=== PATIENT | female | born 1960 | race African-American/Black ===

== ENCOUNTER → 2016-08-01 | Outpatient (CLI) | payer OTHER ==
--- NOTE | 2016-08-01 10:07 | MM ---
Reason for exam: follow-up at short interval from prior study. Last mammogram was performed 6 months ago. History: Patient is postmenopausal. Physical Findings: Nurse Summary: 0.5cm nodule in the left breast at 3 o'clock (nurse kp). MG Diagnostic Mammo LT w CAD CC and MLO view(s) were taken of the left breast. Prior study comparison: January 22, 2016, left breast MG work up mamm w CAD LT. December 16, 2015, bilateral MG screening mammo w CAD. The breast tissue is heterogeneously dense. This may lower the sensitivity of mammography. There is no discrete abnormality. No significant new findings when compared with previous films. These results were verbally communicated with the patient and result sheet given to the patient on 08/01/16. ASSESSMENT: Incomplete: need additional imaging evaluation, BI-RAD 0 RECOMMENDATION: Ultrasound of the left breast. (palpable)
--- NOTE | 2016-08-01 10:08 | USB ---
Reason for exam: additional evaluation requested from abnormal screening. History: Patient is postmenopausal. US Breast Limited LT Left breast ultrasound demonstrates no cystic or solid lesion seen. These results were verbally communicated with the patient and result sheet given to the patient on 08/01/16. ASSESSMENT: Negative, BI-RAD 1 RECOMMENDATION: Return to routine screening mammogram schedule for both breasts. Manage patient on a clinical basis.
== END | disposition home or self-care (01) ==
LOC: RADMAMWWP 08:38
PROVIDERS: ATTEND Family Medicine
DX: R92.8 Other abnormal and inconclusive findings on diagnostic imaging of breast (principal)
CPT/HCPCS: 76642; G0206

== ENCOUNTER → 2016-10-10 | Outpatient (CLI) | payer OTHER ==
--- NOTE | 2016-10-10 12:11 | US ---
EXAMINATION TYPE: US thyroid st tissue head/neck DATE OF EXAM: 10/10/2016 COMPARISON: NONE CLINICAL HISTORY: E03.9 ACQUIRED HYPOTHYROIDISM. GLAND SIZE: Right Lobe: 5.1 x 0.9 x 1.1 cm Overall Parenchyma: homogenous Left Lobe: 4.2 x 1.0 x 1.5 cm Overall Parenchyma: homogeneous Isthmus Thickness: 0.1 cm NODULES RIGHT: # of nodules measured on right: 0 LEFT: # of nodules measured on left: 1 1. 0.3 X 0.2 x 0.1 cm echogenic solid nodule at the mid pole with well-defined margins; . This nod ule is wider than tall and shows no intranodular vascularity. Prior size: no prior ISTHMUS: # of nodules measured in the isthmus: 0 . Bilateral neck scanned, no evidence of lymphadenopathy. Thyroid gland is normal in size and homogeneous in appearance with single small nodule marked lower p ole level left thyroid lobe. IMPRESSION: Thyroid gland is normal in size and homogeneous in echotexture, no worrisome greater than 1 cm solid or cystic nodules are evident bilaterally.
== END | disposition home or self-care (01) ==
LOC: RADUSWWP 11:22
PROVIDERS: ATTEND Family Medicine
DX: E04.1 Nontoxic single thyroid nodule (principal)
CPT/HCPCS: 76536

== ENCOUNTER → 2017-08-14 | Outpatient (CLI) | payer OTHER ==
--- NOTE | 2017-08-15 10:42 | MM ---
Reason for exam: screening (asymptomatic). Last mammogram was performed 1 year ago. History: Patient is postmenopausal. Physical Findings: A clinical breast exam by your physician is recommended on an annual basis and results should be correlated with mammographic findings. MG 3D Screening Mammo W/Cad Bilateral CC and MLO view(s) were taken. Prior study comparison: August 01, 2016, left breast MG diagnostic mammo LT w CAD. January 22, 2016, left breast MG work up mamm w CAD LT. The breast tissue is extremely dense which could obscure a lesion on mammography. Benign calcifications. ASSESSMENT: Benign, BI-RAD 2 RECOMMENDATION: Routine screening mammogram of both breasts in 1 year.
== END | disposition home or self-care (01) ==
LOC: RADMAMWWP 13:50
PROVIDERS: ATTEND Family Medicine
DX: Z12.31 Encounter for screening mammogram for malignant neoplasm of breast (principal)
CPT/HCPCS: 77063; 77067

== ENCOUNTER → 2019-01-30 | Outpatient (CLI) | payer OTHER ==
--- NOTE | 2019-01-30 16:42 | BD ---
EXAMINATION TYPE: Axial Bone Density DATE OF EXAM: 01/30/2019 COMPARISON: NONE CLINICAL HISTORY: Osteoporosis screening Height: 64 Weight: 86 FRAX RISK QUESTIONS: Alcohol (3 or more units per day): no Family History (Parent hip fracture): no Glucocorticoids (More than 3mos): no (Ex: prednisone, prednisolone, methylprednisolone, dexamethasone, and hydrocortisone). History of Fracture in Adulthood: no Secondary Osteoporosis: 1. Type 1 Diabetes: no 2. Hyperthyroidism: no 3. Menopause before 45: yes 4. Malnutrition: yes 5. Chronic liver disease: no Rheumatoid Arthritis: no Current Tobacco Use: no RISK FACTORS HISTORY OF: Diet low in dairy products/other sources of calcium: yes Postmenopausal woman: age 32 Poor Health: yes MEDICATIONS: oxcarbazepine, folic acid, divalproex, trazodone Thyroid Medications: levothyroxine Additional History: EXAM MEASUREMENTS: Bone mineral densitometry was performed using the [employer] System. Bone mineral density as measured about the Lumbar spine is: ----- L1-L4(G/cm2): 0.830 T Score Values are as follows: ----- L2: -3.0 ----- L3: -2.8 ----- L4: -3.1 ----- L1-L4: -2.9 Bone mineral density : baseline Bone mineral density about the R hip (g/cm2): 0.741 Bone mineral density about the L hip (g/cm2): 0.637 T Score values are as follows: -----R Neck: -2.1 -----L Neck: -2.9 -----R Total: -2.1 -----L Total: -3.0 Bone mineral density : baseline IMPRESSION: Osteoporosis NOTE: T-SCORE=SD OF THE YOUNG ADULT MEAN.
--- NOTE | 2019-02-01 10:42 | MM ---
Reason for exam: screening (asymptomatic). Last mammogram was performed 1 year and 6 months ago. History: Patient is postmenopausal. Physical Findings: A clinical breast exam by your physician is recommended on an annual basis and results should be correlated with mammographic findings. MG 3D Screening Mammo W/Cad Bilateral CC and MLO view(s) were taken. Prior study comparison: August 14, 2017, bilateral MG 3d screening mammo w/cad. August 01, 2016, left breast MG diagnostic mammo LT w CAD. The breast tissue is extremely dense which could obscure a lesion on mammography. Benign appearing bilateral vascular calcifications. No suspicious abnormality. No significant changes when compared with prior studies. ASSESSMENT: Benign, BI-RAD 2 RECOMMENDATION: Routine screening mammogram of both breasts in 1 year.
== END | disposition home or self-care (01) ==
LOC: RADMAMWWP 08:02
PROVIDERS: ATTEND Family Medicine
DX: Z12.31 Encounter for screening mammogram for malignant neoplasm of breast (principal); Z13.820 Encounter for screening for osteoporosis; M81.0 Age-related osteoporosis without current pathological fracture; M79.605 Pain in left leg; M79.604 Pain in right leg
CPT/HCPCS: 77063; 77067; 77080; 93922

== ENCOUNTER → 2020-06-11 | Outpatient (CLI) | payer OTHER ==
--- NOTE | 2020-06-12 13:55 | MM ---
Reason for exam: screening (asymptomatic). Last mammogram was performed 1 year and 4 months ago. History: Patient is postmenopausal. Physical Findings: A clinical breast exam by your physician is recommended on an annual basis and results should be correlated with mammographic findings. MG 3D Screening Mammo W/Cad Bilateral CC and MLO view(s) were taken. Prior study comparison: January 30, 2019, bilateral MG 3d screening mammo w/cad. August 14, 2017, bilateral MG 3d screening mammo w/cad. The breast tissue is extremely dense which could obscure a lesion on mammography. New calcifications upper outer right breast. This finding is changed when compared with previous exams. ASSESSMENT: Incomplete: need additional imaging evaluation, BI-RAD 0 RECOMMENDATION: Special view mammogram of the right breast. [facility] will attempt to contact patient to return for supplemental views.
== END | disposition home or self-care (01) ==
LOC: RADMAMWWP 14:39
PROVIDERS: ATTEND Family Medicine
DX: Z12.31 Encounter for screening mammogram for malignant neoplasm of breast (principal)
CPT/HCPCS: 77063; 77067

== ENCOUNTER → 2020-07-01 | Outpatient (CLI) | payer OTHER ==
--- NOTE | 2020-07-02 09:54 | MM ---
Reason for exam: additional evaluation requested from abnormal screening. Last mammogram was performed 1 month ago. History: Patient is postmenopausal. Physical Findings: Nurse did not find any significant physical abnormalities on exam. MG 3D Work Up W/Cad RT CC with magnification, LM with magnification, and LM view(s) were taken of the right breast. Prior study comparison: June 11, 2020, bilateral MG 3d screening mammo w/cad. January 30, 2019, bilateral MG 3d screening mammo w/cad. The breast tissue is heterogeneously dense. This may lower the sensitivity of mammography. Vague grouped 11 o'clock microcalcifications are redemonstrated. Not well seen on priors. Patient not amenable to stereo biopsy to breast thickness. These results were verbally communicated with the patient and result sheet given to the patient on 07/01/20. ASSESSMENT: Suspicious, BI-RAD 4 RECOMMENDATION: Localization and excision of the right breast. (Consider CC from above approach) Called Dr. Navarro's office with mammographic findings and has scheduled an appointment for the patient for 07/30/20 at 11:[address] Moss. Biopsy scheduled for 08/05/20. PRELIMINARY REPORT CALLED AND FAXED TO DR. MOSS ON 07/02/20.
== END | disposition home or self-care (01) ==
LOC: RADMAMWWP 13:27
PROVIDERS: ATTEND Family Medicine
DX: R92.8 Other abnormal and inconclusive findings on diagnostic imaging of breast (principal)
CPT/HCPCS: 77065; G0279; 77061

== ENCOUNTER → 2020-07-30 | Outpatient (CLI) | payer OTHER ==
[2020-07-30 11:27] VITALS: BP 123/75; PULSE 66; RESP 12; TEMP 97.8
--- NOTE | 2020-07-30 11:33 | P.GSHP ---
History of Present Illness H&P Date: 07/30/20 Chief Complaint: Mammographic abnormality right breast Alexia is a 60 year old female who is seen in consultation fro Dr. Radha Perea. She had a bilateral mammogram performed on 2420. The breast tissue was extremely dense nuclear calcifications were seen in the right breast in the upper outer quadrant. A diagnostic right breast mammogram was then performed and [id number]. Vague area of grouped microcalcifications were noted at the 11 o'clock position. The feeling was that the breast was too thin for her to undergo a stereo biopsy and needle localization and excision in the operating room was recommended. She gets yearly mammograms on a regular basis. Her last mammogram prior to this one was approximately 1 year 4 months ago. She did not note any lumps masses or nodules of concern in either breast. She is complaining of any nipple discharge or skin changes. She does not have any pain in her breast. She is not complaining of any trauma or infection in the breast. Caffeine: none Nicotine: One pack every 2 days, since chocolate: occasional hormones: none Family History: mother: colon cancer Hormonal History: menarche: 13 G5,P2, M1 AB1 tubal:1, breast fed: no, age at first : 18 menopause: 26 BCP: no hormones: none Surgical History: 1. appy Medical History: 1. seizure 2. bipolar 3. hypothyroid 4. hypoglycemia 5. asthma Social History: nicotine: since alcohol: 1 drink vodka/2 days drugs: none - Constitutional Constitutional: Denies chills, Denies fever - EENT Comment: glasses Eyes: denies blurred vision, denies pain Ears: deny: decreased hearing, tinnitus Ears, nose, mouth and throat: Denies headache, Denies sore throat - Breasts Breasts: bilateral: as per HPI - Cardiovascular Cardiovascular: Denies chest pain, Denies shortness of breath - Respiratory Comment: nicotine dependance asthma - Gastrointestinal Gastrointestinal: Reports constipation - Genitourinary (Female) Genitourinary: Denies dysuria, Denies hematuria - Menstruation Menstruation: Reports postmenopausal - Musculoskeletal Comment: osteoporosis - Integumentary Integumentary: Denies pruritus, Denies rash - Neurological Comment: seizure - Psychiatric Comment: bipolar - Endocrine Comment: hypothyroid - Hematologic/Lymphatic Comment: none - Allergic/Immunologic Allergic/Immunologic: Reports seasonal allergies Surgical - Exam BMI 14.9 - General cachectic - Eyes normal ocular movement - ENT normal pinna, normal nares - Neck no masses, trachea midline - Respiratory normal expansion, normal respiratory effort, clear to auscultation - Cardiovascular Rhythm: regular Heart Sounds: normal: S1, S2 - Abdomen Abdomen: soft - Integumentary normal turgor - Neurologic no disoriented, no combative - Musculoskeletal normal gait - Psychiatric oriented to time, oriented to person, oriented to place, speech is normal, memory intact breast exam: BRA: Xsmall inspection; the lateral grade 3 ptosis Palpation: Right breast: Multi-positional exam fibrocystic changes, no dominant masses or nodules of concern Right axilla: No adenopathy of concern Left breast: Multi-positional exam fibrocystic changes, no dominant masses or nodules of concern Left axilla: No adenopathy of concern Results Mammogram results reviewed with Dr. Aguirre; patient is not felt to be a candidate for an attempted stereo biopsy and lesion of concern is felt to warrant needle local excision Assessment and Plan Assessment: Impression: 1. seizure 2. bipolar 3. hypothyroid 4. hypoglycemia 5. asthma 6. Cachexia 7. Mammographic abnormality right breast 8. Nicotine dependence Plan: 1. Needle localization excision of lesion of concern in the right breast 2. Medical clearance from Dr. Perea 3. Patient encouraged to stop smoking prior to the procedure 4. Ensure prior to surgery 5. Vitamin C supplementation prior to the procedure Risks and benefits of the procedure were discussed with the patient. She understands and wishes to proceed. CC: Dr. Escudero
== END ==
LOC: WWCWWP 11:02
PROVIDERS: ATTEND Surgery
DX: R92.8 Other abnormal and inconclusive findings on diagnostic imaging of breast (principal); F31.9 Bipolar disorder, unspecified; E03.9 Hypothyroidism, unspecified; J45.909 Unspecified asthma, uncomplicated; E16.2 Hypoglycemia, unspecified; F17.200 Nicotine dependence, unspecified, uncomplicated; R64 Cachexia; R56.9 Unspecified convulsions

== ENCOUNTER → 2020-09-24 | Outpatient (CLI) | payer OTHER ==
[2020-09-24 10:50] VITALS: BP 125/77; PULSE 76; RESP 18; TEMP 98.5
--- NOTE | 2020-09-24 11:28 | P.PN ---
Subjective Progress Note Date: 09/24/20 Principal diagnosis: abnormal right breast mammogram Alexia is a 60 year old female who is seen in consultation fro Dr. Radha Perea. She had a bilateral mammogram performed on 2420. The breast tissue was extremely dense and calcifications were seen in the right breast in the upper outer quadrant. A diagnostic right breast mammogram was then performed on . Vague area of grouped microcalcifications were noted at the 11 o'clock position. The feeling was that the breast was too thin for her to undergo a stereo biopsy and needle localization and excision in the operating room was recommended. She gets yearly mammograms on a regular basis. Her last mammogram prior to this one was approximately 1 year 4 months ago. She did not note any lumps masses or nodules of concern in either breast. She is complaining of any nipple discharge or skin changes. She does not have any pain in her breast. She is not complaining of any trauma or infection in the breast. Caffeine: none Nicotine: One pack every 2 days, since chocolate: occasional hormones: none Family History: mother: colon cancer Hormonal History: menarche: 13 G5,P2, M1 AB1 tubal:1, breast fed: no, age at first : 18 menopause: 26 BCP: no hormones: none Surgical History: 1. appy Medical History: 1. seizure 2. bipolar 3. hypothyroid 4. hypoglycemia 5. asthma Social History: nicotine: since alcohol: 1 drink vodka/2 days drugs: none - Constitutional Constitutional: Denies chills, Denies fever - EENT Comment: glasses Eyes: denies blurred vision, denies pain Ears: deny: decreased hearing, tinnitus Ears, nose, mouth and throat: Denies headache, Denies sore throat - Breasts Breasts: bilateral: as per HPI - Cardiovascular Cardiovascular: Denies chest pain, Denies shortness of breath - Respiratory Comment: nicotine dependance asthma - Gastrointestinal Gastrointestinal: Reports constipation - Genitourinary (Female) Genitourinary: Denies dysuria, Denies hematuria - Menstruation Menstruation: Reports postmenopausal - Musculoskeletal Comment: osteoporosis - Integumentary Integumentary: Denies pruritus, Denies rash - Neurological Comment: seizure - Psychiatric Comment: bipolar - Endocrine Comment: hypothyroid - Hematologic/Lymphatic Comment: none - Allergic/Immunologic Allergic/Immunologic: Reports seasonal allergies Objective - Vital Signs Vital signs: Vital Signs Temp 98.5 F 09/24/20 10:46 Pulse 76 09/24/20 10:46 Resp 18 09/24/20 10:46 BP 125/77 09/24/20 10:46 Pulse Ox 97 09/24/20 10:46 Intake & Output 09/23/20 09/24/20 09/24/20 18:59 06:59 18:59 Weight 37.195 kg - Exam BMI 14.1 - Constitutional General appearance: Present: cooperative - EENT Eyes: Present: EOMI ENT: Present: hearing grossly normal - Neck Neck: Present: normal ROM - Respiratory Respiratory: bilateral: CTA - Cardiovascular Heart sounds: normal: S1, S2 - Gastrointestinal General gastrointestinal: Present: soft - Integumentary Integumentary: Present: normal turgor - Musculoskeletal Musculoskeletal Comment(s): uses a cane - Psychiatric Psychiatric: Present: A&O x's 3, appropriate affect, intact judgment & insight - Additional findings Additional findings: Breast exam: BRA: A inspection: bilateral grade 3 ptosis Palpation: Right breast: Multi-positional exam fibrocystic changes no dominant masses or nodules of concern Right axilla: No adenopathy of concern Left breast: Multiple positional exam fibrocystic changes Left axilla: No adenopathy of concern Assessment and Plan Assessment: Impression: 1. seizure 2. bipolar 3. hypothyroid 4. hypoglycemia 5. asthma 6. Mammographic abnormality right breast Plan: 1. Right breast needle localization excisional biopsy, possible onco- plastic tissue transfer, possible mastopexy 2. medical clearance Risk and benefits of the procedure discussed with the patient. She would prefer this be done via mastopexy incision if possible. She understands she will be asymmetric. Risks include but are not limited to bleeding, infection, reaction to the anesthetic. There is a possibility that the needle was slipped over the neck of the correct area. She understands this and wishes to proceed.
== END ==
LOC: WWCWWP 09:22
PROVIDERS: ATTEND Surgery
DX: R92.8 Other abnormal and inconclusive findings on diagnostic imaging of breast (principal); R56.9 Unspecified convulsions; F31.9 Bipolar disorder, unspecified; E03.9 Hypothyroidism, unspecified; J45.909 Unspecified asthma, uncomplicated; E16.2 Hypoglycemia, unspecified; Z88.5 Allergy status to narcotic agent; Z88.0 Allergy status to penicillin

== ENCOUNTER 2020-09-29 07:27 | Day surgery (SDC) | payer OTHER ==
[2020-09-28 08:49] VITALS: BMI 14.1
[~2020-09-29 07:27] MED LIST: HEPARIN SODIUM,PORCINE/PF 5,000 UNIT/0.5 ML SYRINGE SQ PRN; Pre Op ABX Message 1 EACH MISC MISCELLANE ONE
[2020-09-29] MEDS ORDERED: HYDROmorphone 0.5 MG/0.5 ML SYRINGE IVP PRN (07:42)
[2020-09-29] MEDS ORDERED: MIDAZOLAM 2 MG/2 ML VIAL IV PRN (07:42)
[2020-09-29] MEDS ORDERED: LACTATED RINGERS 1,000 ML IV SCH (07:42)
[2020-09-29] MEDS ORDERED: DEXAMETHASONE SOD PHOSPHATE 4 MG/ML 1 ML VIAL IV ONE (07:42)
[2020-09-29] MEDS ORDERED: LIDOCAINE 1% (10MG/ML) FOR IV START INTRADERMA PRN (07:42)
[2020-09-29] MEDS ORDERED: ONDANSETRON 4 MG/2 ML VIAL IVP ONE (07:42)
[2020-09-29] MEDS ORDERED: LIDOCAINE 1% INJ 10MG/ML (20 ML MDV) SQ ONE ×2 (08:55→10:18)
--- NOTE | 2020-09-29 09:25 | MM ---
MAMMOGRAPHIC GUIDED NEEDLE LOCALIZATION Right BREAST: The procedure and risks were explained to the patient and written informed consent obtained. Using local anesthetic, sterile technique and mammographic guidance, a 5 cm Ghiatas localization need le was percutaneously placed in the area of microcalcifications. Orthogonal mammographic views confi rmed satisfactory needle placement. The hookwire was deployed. . The patient tolerated the procedure well. There were no complications. IMPRESSION: Uneventful needle localization of Right breast without complication.
[2020-09-29] MEDS ORDERED: PROPOFOL 10 MG/ML 20 ML VIAL IV ONE (09:51)
[2020-09-29] MEDS ORDERED: fentaNYL (PF) 50 MCG/ML 2 ML AMP ONE (09:51)
[2020-09-29] MEDS ORDERED: MIDAZOLAM 2 MG/2 ML VIAL ONE (09:51)
[2020-09-29] MEDS ORDERED: LIDOCAINE 1% INJ 10MG/ML (20 ML MDV) ONE (09:51)
--- NOTE | 2020-09-29 10:42 | P.OP ---
Date of Procedure: 09/29/20 Preoperative Diagnosis: Microcalcifications of concern right breast Postoperative Diagnosis: Same Procedure(s) Performed: needle Localization excisional lumpectomy microcalcifications of concern right breast Anesthesia: SKYA Surgeon: Yasemin Moss Estimated Blood Loss (ml): 3 IV fluids (ml): 300 Pathology: other (Breast tissue) Condition: stable Disposition: same day Indications for Procedure: Microcalcifications of concern right breast, failed stereotactic core biopsy Operative Findings: Dense breast tissue Description of Procedure: The patient was first seen in the radiology department where needle localization of the area of concern was performed. Following this she was brought to the operative suite and following induction of anesthesia the right breast was prepped and draped in a sterile fashion. An incision was made and carried down to the shaft of the needle. Surrounding tissue was excised. After assured that hemostasis was attained the cavity was well irrigated. Titanium clips were placed. The deep tissues were closed using 3-0 Vicryl suture. The subcutaneous tissues closed using 3-0 Vicryl suture. The skin was closed using 4-0 Monocryl and glue. The specimen revealed the area of concern had been removed. The patient tolerated the procedure in stable condition. All instrument and sponge counts were correct at the end of the case.
--- NOTE | 2020-09-29 10:44 | P.DS ---
Providers Attending physician: Yasemin Moss Primary care physician: Radha Navarro Plan - Discharge Summary Discharge Rx Participant: No New Discharge Prescriptions: No Action traZODone HCL 50 mg PO HS Famotidine [Pepcid] 20 mg PO HS OXcarbazepine [Trileptal] 150 mg PO BID Divalproex Sodium [Depakote] 500 mg PO BID Calcium Carbonate [Calcium] 600 mg PO BID Levothyroxine-Dose Unk 1 tab PO DAILY Alendronate Sodium 70 mg PO SA Discharge Medication List Calcium Carbonate [Calcium] 600 mg PO BID 09/24/20 [History] Divalproex Sodium [Depakote] 500 mg PO BID 09/24/20 [History] Famotidine [Pepcid] 20 mg PO HS 09/24/20 [History] OXcarbazepine [Trileptal] 150 mg PO BID 09/24/20 [History] traZODone HCL 50 mg PO HS 09/24/20 [History] Alendronate Sodium 70 mg PO SA 09/28/20 [History] Levothyroxine-Dose Unk 1 tab PO DAILY 09/28/20 [History] Follow up Appointment(s)/Referral(s): Yasemin Moss MD [STAFF PHYSICIAN] - 1 Week Activity/Diet/Wound Care/Special Instructions: do not drive today may shower after 48 hours Discharge Disposition: HOME SELF-CARE
--- NOTE | 2020-09-29 10:45 | MM ---
FINDINGS: Right breast specimen radiograph demonstrates the tip of the localization needle. IMPRESSION: Intact appearing localization needle within the specimen right breast specimen radiograph.
[2020-09-29 10:59] VITALS: TEMP 97.2
[2020-09-29 11:48] VITALS: RESP 18
[2020-09-29 12:13] VITALS: BP 123/74; PULSE 66
== END 2020-09-29 12:23 | disposition home or self-care (01) ==
LOC: OR 07:27
PROVIDERS: ATTEND Surgery
DX: N60.11 Diffuse cystic mastopathy of right breast (principal); J45.909 Unspecified asthma, uncomplicated; F17.210 Nicotine dependence, cigarettes, uncomplicated; K21.9 Gastro-esophageal reflux disease without esophagitis; Z79.899 Other long term (current) drug therapy; Z88.0 Allergy status to penicillin; Z80.0 Family history of malignant neoplasm of digestive organs; E03.9 Hypothyroidism, unspecified; E16.2 Hypoglycemia, unspecified; F31.9 Bipolar disorder, unspecified; M81.0 Age-related osteoporosis without current pathological fracture
CPT/HCPCS: 88307; 76098; 19281; 19301; J2250; J1100; J2405; J2001; J3010; J2704; J1644

== ENCOUNTER → 2020-10-16 | Outpatient (CLI) | payer OTHER ==
--- NOTE | 2020-10-16 12:24 | P.PN ---
Progress Note - Text Progress Note Date: 10/16/20 Alexia is a 60 year old female status post right breast needle localization excisional biopsy. This was done and [id number]. Pathology is benign. The patient has no complaints related to the procedure. Physical Examination: Incision right breast clean and dry no evidence of any infection Lungs: Clear Heart: Regular rate and rhythm Impression: 1. Patient status post needle localization excisional biopsy right breast benign Plan: 1. Repeat right breast mammogram in 6 months with physician exam at that time Cc: Dr. Lesly Navarro
[2020-10-16 13:09] VITALS: BP 104/69; PULSE 54; RESP 18; TEMP 98.1
== END ==
LOC: WWCWWP 10-09 15:58
PROVIDERS: ATTEND Surgery
DX: N60.91 Unspecified benign mammary dysplasia of right breast (principal); Z88.5 Allergy status to narcotic agent; Z88.0 Allergy status to penicillin

== ENCOUNTER → 2021-04-16 | Outpatient (CLI) | payer OTHER ==
--- NOTE | 2021-04-19 09:48 | MM ---
Reason for exam: follow-up at short interval from prior study. Last mammogram was performed 9 months ago. History: Patient is postmenopausal. Benign MG pre op needle loc RT of the right breast, September 29, 2020. Physical Findings: Nurse did not find any significant physical abnormalities on exam. MG 3D Diag Mammo W/Cad RT CC and MLO view(s) were taken of the right breast. Prior study comparison: July 01, 2020, right breast MG 3d work up w/cad RT. June 11, 2020, bilateral MG 3d screening mammo w/cad. The breast tissue is extremely dense which could obscure a lesion on mammography. Post surgical changes right upper outer quadrant. These results were verbally communicated with the patient and result sheet given to the patient on 04/16/21. ASSESSMENT: Benign, BI-RAD 2 RECOMMENDATION: Return to routine screening mammogram schedule for both breasts. Back on schedule.
== END | disposition home or self-care (01) ==
LOC: RADMAMWWP 14:54
PROVIDERS: ATTEND Surgery
DX: R92.8 Other abnormal and inconclusive findings on diagnostic imaging of breast (principal)
CPT/HCPCS: 77065; G0279; 77061

== ENCOUNTER → 2022-04-28 | Outpatient (CLI) | payer OTHER ==
[2022-04-28 18:46] LABS: INR 0.92 (0.90-1.11); Prothrombin Time 10.4 sec (9.9-11.9)
[2022-04-28 18:50] LABS: Basophils # (A) 0.02 X 10*3/uL (0.00-0.10); Basophils % (A) 0.2 %; Eosinophils # (A) 0.05 X 10*3/uL (0.04-0.35); Eosinophils % (A) 0.6 %; HCT 38.2 % (37.2-46.3); HGB 12.1 g/dL (12.0-15.0); Immature Grans, Automated 0.3 %; Lymphocytes # (A) 2.92 X 10*3/uL (0.90-5.00); Lymphocytes % (A) 32.7 %; MCHC 31.7 g/dL (32.0-37.0); MCV 104.1 fL (80.0-97.0); Mean Platelet Volume 9.4 fL (9.5-12.2); Monocytes # (A) 0.61 X 10*3/uL (0.20-1.00); Monocytes % (A) 6.8 %; NRBC Per 100 WBC 0.3 /100 WBCS (0.0-0.0); Neutrophils # (A) 5.31 X 10*3/uL (1.80-7.70); Neutrophils % (A) 59.4 %; Platelet Count 666 X 10*3/uL (140-440); RBC 3.67 X 10*6/uL (4.10-5.20); RDW 16.2 % (11.5-14.5); WBC 8.94 X 10*3/uL (4.50-10.00)
[2022-04-28 19:01] LABS: African American GFR (CKD) 109.3 (60.0-200.0); Albumin 5.1 g/dL (3.8-4.9); Albumin/Globulin Ratio 1.52 (1.60-3.17); Anion Gap 15.7 mmol/L (10.00-18.00); BUN/Creat Ratio 10.38 Ratio (12.00-20.00); Blood Urea Nitrogen 7.1 mg/dL (9.0-27.0); Calcium 10.5 mg/dL (8.7-10.3); Carbon Dioxide 22.3 mmol/L (20.0-27.5); Globulin 3.3 g/dL (1.6-3.3); Non-African American GFR(CKD) 94.3 (60.0-200.0); Potassium 4.4 mmol/L (3.5-5.5); Total Bilirubin 0.5 mg/dL (0.30-1.20); Total Protein 8.4 g/dL (6.2-8.2)
== END | disposition home or self-care (01) ==
LOC: LABWHC1 11:01
PROVIDERS: ATTEND Family Medicine
DX: Z01.812 Encounter for preprocedural laboratory examination (principal)
CPT/HCPCS: 36415; 80053; 85025; 85610

== ENCOUNTER 2022-05-02 06:22 | Observation (INO) | payer OTHER ==
[2022-04-29 12:48] VITALS: BMI 14.4
[~2022-05-02 06:22] MED LIST changes: +ACETAMINOPHEN TAB 500 MG TAB PO PRN; -HEPARIN SODIUM,PORCINE/PF 5,000 UNIT/0.5 ML SYRINGE SQ PRN; +MELOXICAM 7.5 MG TAB PO PRN; +ONDANSETRON 4 MG/2 ML VIAL IVP PRN; -Pre Op ABX Message 1 EACH MISC MISCELLANE ONE; +TRANEXAMIC ACID IN NACL,ISO-OS 1,000 MG in SALINE 1 100ML.BAG IVPB PRN
[2022-05-02] MEDS ORDERED: LIDOCAINE 1% (10MG/ML) FOR IV START INTRADERMA PRN (06:31)
[2022-05-02] MEDS ORDERED: LACTATED RINGERS 1,000 ML IV ONE ×2 (06:50→09:45)
[2022-05-02] MEDS ORDERED: fentaNYL (PF) 50 MCG/ML 2 ML AMP IV PRN (07:00)
[2022-05-02] MEDS ORDERED: DEXAMETHASONE SOD PHOSPHATE 4 MG/ML 1 ML VIAL IVP ONE (07:33)
[2022-05-02] MEDS ORDERED: MIDAZOLAM 2 MG/2 ML VIAL IVP ONE (07:35)
[2022-05-02] MEDS ORDERED: ROPIVACAINE 5 MG/ML 30 ML VIAL ONE (08:14)
[2022-05-02] MEDS ORDERED: ROCURONIUM 10 MG/ML (5 ML VIAL) IV ONE (08:14)
[2022-05-02] MEDS ORDERED: NEOSTIGMINE 1 MG/ML 10 ML VIAL ONE (08:14)
[2022-05-02] MEDS ORDERED: DEXAMETHASONE SOD PHOSPHATE 4 MG/ML 1 ML VIAL ONE (08:14)
[2022-05-02] MEDS ORDERED: PHENYLEPHRINE-0.9% NACL SYG 1,000 MCG/10 ML SYRINGE ONE (08:14)
[2022-05-02] MEDS ORDERED: GLYCOPYRROLATE 0.2 MG/ML 2 ML VIAL ONE (08:14)
[2022-05-02] MEDS ORDERED: PROPOFOL 10 MG/ML 20 ML VIAL IV ONE (08:14)
[2022-05-02] MEDS ORDERED: LIDOCAINE 1% (10MG/ML) FOR IV START ONE (08:14)
[2022-05-02] MEDS ORDERED: fentaNYL (PF) 50 MCG/ML 2 ML AMP ONE (08:14)
--- NOTE | 2022-05-02 09:06 | P.ANPRN ---
Procedure Note - Anesthesia - Nerve Block Performed Right Interscalene Single Time Out Performed: Yes Date of Procedure: 05/02/22 Procedure Start Time: :34 Procedure Stop Time: 07:40 Location of Patient: PreOp Indication: Acute Post-Operative Pain, Requested by Surgeon Sedation Type: Sedate with meaningful contact maintained Preparation: Sterile Prep, Sterile Dressing Position: Sitting Catheter: None Needle Types: Facet Needle Gauge: 21 Ultrasound used to visualize needle placement: Yes Ultrasound used to observe medication spread: Yes Injectate: 0.5% Ropivacaine (see comment for volume) (20 ml + decadron 4 mg) Blood Aspirated: No Pain Paresthesia on Injection Noted: No Resistance on Injection: Normal Image Stored and Saved: Yes Events: Uneventful and Well Tolerated
[2022-05-02] MEDS ORDERED: METOCLOPRAMIDE 5 MG/ML 2 ML VIAL IVP PRN (11:27)
[2022-05-02] MEDS ORDERED: SENNOSIDES-DOCUSATE SODIUM 1 EACH TAB PO PRN (11:27)
[2022-05-02] MEDS ORDERED: ONDANSETRON 4 MG/2 ML VIAL IVP PRN (11:27)
[2022-05-02] MEDS ORDERED: HYDROmorphone 0.5 MG/0.5 ML SYRINGE IVP PRN ×2 (11:27)
[2022-05-02] MEDS ORDERED: HYDROmorphone 1 MG/ML 1 ML SYRINGE IVP PRN (11:27)
--- NOTE | 2022-05-02 12:50 | XR ---
EXAMINATION TYPE: XR shoulder limited RT DATE OF EXAM: 05/02/2022 12:29 PM INDICATION: Patient age:Female; 62 years old; Reason for study: s/p right reverse TSA; COMPARISON: None TECHNIQUE: The right shoulder was examined in frontal projection. FINDINGS: Right reverse shoulder arthroplasty changes. There is acute osseous fragments along the superior and inferior aspect of the proximal humerus. Hardware appears intact. IMPRESSION: Reverse right shoulder arthroplasty changes with fracture fragments along the superior and inferior a spect of the proximal humerus. Hardware appears intact.
[2022-05-02] MEDS ORDERED: ALBUTEROL NEBULIZED 2.5 MG/3 ML INHALATION PRN (15:59)
[2022-05-02] MEDS: HYDROcodone/APAP 5-325MG 1 EACH TAB PO PRN ×3 (16:31→22:17)
--- NOTE | 2022-05-02 19:05 | P.OP ---
Date of Procedure: 05/02/22 Preoperative Diagnosis: Right Proximal humerus fracture and dislocation Postoperative Diagnosis: Right proximal humerus fracture and dislocation Procedure(s) Performed: right reverse total shoulder Implants: [employer] Reverse Total Shoulder 24mm +2 baseplate, inferior nonlocking screw, 2 additional locking screws 36mm glenosphere size 6 standard stem 33mm cup 33+3 for 36mm poly Anesthesia: SKYA, durga Surgeon: Rosy Sutton Electric Sign Wirer #1: Hemalatha Hsu Estimated Blood Loss (ml): 200 Pathology: none sent Condition: stable Disposition: PACU Indications for Procedure: Alexia had a ground level fall on 04/12/22. She sustained a proximal humerus fracture with a dislocated humeral head. We had a long discussion about her treatment options and decided to proceed with a reverse total shoulder arthroplasty. Description of Procedure: The patient, operative extremity, and procedure were confirmed in the preop holding area. After an informed consent was obtained, the patient received a regional block by the anesthesia team. She was then brought back to the OR where general anesthesia was induced and she was placed in the beachchair position. The extremity was then prepped and draped in normal sterile fashion. An oblique incision from just lateral to the coracoid to the deltoid incision was made. Dissection was carried down to the muscles and the delto pectoral interval was developed after identifying the brachiocephalic vein. This was drawn medially and the lateral branches were ligated. The interval was further developed until the clavipectoral fascia was identified. The subdeltoid and subcorocoid space was cleared with a hernandez elevator. The interval was quite tight given the time since the fracture. About 1cm of the pectoralis attachment was released. The clavipectoral fascia was opened and a kobell retractor placed beneath the conjoined tendon. The biceps tendon was identified in the bicipital groove. It was transected and tenodesed with a 2.0 vicryl suture. The groove was marked with a bovie and an osteotome was utilized to split the lesser from the greater tuberosities. They were opened liked a book and the impacted and dislocated humeral head was retrieved. Attention was then turned to the humeral shaft. The reamer was inserted and the cutting guide attached. A small area of the medial calcar was trimmed. Attention was then turned to the glenoid. The subscapularis tendon was released from the capsule and the anterior capsule was excised. The rotator interval was split all the way to the glenoid. The lesser and greater tuberosities were tagged. The biceps tendon was followed to the labrum. This was excised. The articular cartilage was scraped away. The central guide wire was then inserted. The measuring device revealed that a 36mm glenosphere would provide appropriate inferior coverage. Sequential reamers on the glenoid surface until bleeding bone was identified. The central peg was drilled and tapped. A 20mm central screw was assembled with the baseplate and inserted. There was good purchase. The inferior hole was drilled and filled with a nonlocking screw. The superior and posterior holes were filled with appropriately lengthed locking screws. The anterior hole was backed only by a thin shell of anterior glenoid rim and the decision was made to leave it unfilled given the excellent purchase with the pre vious screws. A 36mm glenosphere was impacted onto the baseplate. The attention was again turned to the humerus. Sequential broaches were used until a size 6 stem showed good purchase. A +3 cup was trialed with good fit with good range of motion and stability. The trials/broaches were removed and the humerus was copiously irrigated with normal saline. Two holes were drilled and a #5 fiberwire was inserted for the around the [place] stitch. The size 6 stem was then inserted. While it was impacted into place, there was a small chip of the medial calcar that was dislodged. examination revealed that there was no propagation but a prophylactic fibertape cerclage was placed. A 33 +3 to 36mm cup/poly was inserted. The joint was reduced with good tension and stability. Two fiberwire stitches were placed in the cup. These were taken through the greater and lesser trochanters. These were reduced and secured with the sutures from lesser to greater and from the humeral shaft around the top of the greater and lesser. The trochanters were well approximated. The delto pec interval was closed with 2.0 vicyrl. The remainder of the wound was closed in a layered fashion with 2.0 vicryl and 4.0 monocryl and skin glue. Provena dressing was placed. Patient was aroused by the anesthesia team and brought to pacu in stable condition.
[2022-05-02] MEDS: LACTATED RINGERS 1,000 ML IV SCH (19:40)
[2022-05-02] MEDS: DIVALPROEX 500 MG TABLET.DR PO SCH (19:46)
--- NOTE | 2022-05-02 22:31 | P.CONS ---
History of Present Illness - Reason for Consult Consult date: 05/02/22 Medical management - Chief Complaint Status post shoulder surgery. - History of Present Illness Patient is a 62-year-old female with a known history of hypothyroidism, seizure disorder, asthma and bipolar disorder and currently everyday smoker and occasional marijuana use was brought to the hospital for elective right reverse total shoulder due to right proximal humerus fracture status post fall. Patient states that she slipped her foot and fell down 4 steps and landed on her left shoulder. She had a fall on 04/12/2022. Patient was seen at [facility] on 04/13/2022 and was referred to orthopedic surgery evaluation. Patient was admitted to the hospital for surgical repair. Patient tolerated the procedure very well. Complains of shoulder pain. Wound VAC in place. Shoulder x-ray postsurgery showed reverse right shoulder arthroplasty changes with fracture fragments along the superior and inferior aspect of the proximal humerus. Hardware appears intact. Laboratory data not available at this time. Review of Systems Constitutional: Patient denies any fever or chills . no Generalized weakness. Abdomen: Patient denied any nausea or vomiting or abd. pain Cardiovascular: Patient denies any chest pain or short of breath no palpitations. Respiratory: patient denied any cough . no sputum production. No shortness of breath Neurologic: Patient denied any numbness or tingling headache. Musculoskeletal: Patient denies any complaints of joint swelling or deformity. Right shoulder pain at the surgical site. Skin: Negative Psychiatric: Negative Endocrine: No heat or cold intolerance. No recent weight gain. Genitourinary: No dysuria or hematuria. All other 14 point ROS negative except the above Past Medical History Past Medical History: Asthma, Seizure Disorder, Thyroid Disorder Additional Past Medical History / Comment(s): anemia, last seizure 2 1/2 yrs ago., osteoporosis., states she fell on stairs and injured right shoulder 04/12/22. History of Any Multi-Drug Resistant Organisms: None Reported Past Surgical History: Appendectomy, Orthopedic Surgery Additional Past Surgical History / Comment(s): left hip fx (2020) Past Anesthesia/Blood Transfusion Reactions: No Reported Reaction Past Psychological History: Bipolar Smoking Status: Current every day smoker Past Alcohol Use History: Occasional Additional Past Alcohol Use History / Comment(s): smokes 1/2 ppd., Started smoking age 18. Past Drug Use History: Marijuana Additional Drug Use History / Comment(s): occasional marijuana - Past Family History Father History Unknown: Yes Medications and Allergies Home Medications Medication Instructions Recorded Confirmed Type Calcium Carbonate [Calcium] 600 mg PO BID 09/24/20 05/02/22 History Divalproex Sodium [Depakote] 500 mg PO BID 09/24/20 05/02/22 History Alendronate Sodium 70 mg PO FR 09/28/20 05/02/22 History Albuterol Sulfate [Proventil Hfa] 1 puff INHALATION Q4-6H PRN 04/29/22 05/02/22 History Levothyroxine Sodium [Synthroid] 50 mcg PO DAILY 04/29/22 05/02/22 History Trileptal (Unknown Dose) 1 dose PO TID 04/29/22 05/02/22 History rOPINIRole HCL 0.25 mg PO HS 04/29/22 05/02/22 History Allergies Allergy/AdvReac Type Severity Reaction Status Date / Time codeine Allergy Itching Verified 05/02/22 06:42 Penicillins Allergy Itching Verified 05/02/22 06:42 Physical Exam Vitals: Vital Signs Temp Pulse Resp BP Pulse Ox 05/02/22 14:00 57 L 16 104/60 97 05/02/22 13:30 59 L 16 112/60 97 05/02/22 13:03 62 16 103/60 98 05/02/22 12:30 66 16 99/58 98 05/02/22 12:15 62 16 92/54 97 05/02/22 12:00 70 16 89/61 96 05/02/22 11:45 77 16 107/56 96 05/02/22 11:30 74 16 104/60 100 05/02/22 11:26 96.9 F L 73 16 112/64 100 05/02/22 07:40 96.8 F L 70 15 119/62 98 Intake and Output 05/02/22 05/02/22 05/02/22 06:59 14:59 22:59 Intake Total 300 1250 Output Total 200 Balance 300 1050 Intake: IV 300 1250 Output: Estimated Blood Loss 200 Other: Weight 38.102 kg PHYSICAL EXAMINATION: Patient is lying in the bed comfortably, no acute distress, awake alert and oriented.. HEENT: Normocephalic. Neck is supple. Pupils reactive. Nostrils clear. Oral cavity is moist. Neck reveals no JVD, carotid bruits, or thyromegaly. CHEST EXAMINATION: Trachea is central. Symmetrical expansion. Lung pulido clear to auscultation and percussion. CARDIAC: Normal S1, S2 with no gallops. No murmurs ABDOMEN: Soft. Bowel sounds present. Nontender. No organomegaly. No abdominal bruits. Extremities: reveal no edema. No clubbing or cyanosis Neurologically awake, alert, oriented x3 with well-coordinated movements. No focal deficits noted Skin: No rash or skin lesions. Psychiatric: Coperative. Nonsuicidal, Musculoskeletal: No joint swelling or deformity. Right shoulder surgical site with wound VAC in place. Assessment and Plan Assessment: S/p reverse right total shoulder. Postoperative day 0 Status post fall on 04/12/2022 and fractures of proximal right humerus. History of seizure disorder. On Depakote and Trileptal Hypothyroidism Currently everyday smoker Bipolar disorder Occasional marijuana use neck Asthma not in exacerbation DVT prophylax Plan: Patient will continue on current pain management, bowel regimen and encourage incentive spirometry. Patient will be started back on antiepileptic drugs, Trileptal and Depakote. Continue with the levothyroxine and other home medications. Follow-up blood pressure and further recommendations based on the clinical course. Follow-up CBC and BMP tomorrow. Thank you for your consult. Time with Patient: Greater than 30
[2022-05-03] MEDS: HYDROcodone/APAP 5-325MG 1 EACH TAB PO PRN ×3 (02:18→10:03)
[2022-05-03] MEDS: LACTATED RINGERS 1,000 ML IV SCH (06:09)
[2022-05-03] MEDS ORDERED: LEVOTHYROXINE 50 MCG TAB PO SCH (06:30)
[2022-05-03 08:51] VITALS: BP 135/76; PULSE 79; RESP 18; TEMP 97.5
[2022-05-03 08:52] LABS: HCT 29.1 % (37.2-46.3); HGB 9.1 g/dL (12.0-15.0); MCHC 31.3 g/dL (32.0-37.0); MCV 105.4 fL (80.0-97.0); Mean Platelet Volume 9.7 fL (9.5-12.2); NRBC Per 100 WBC 0 /100 WBCS (0.0-0.0); Platelet Count 409 X 10*3/uL (140-440); RBC 2.76 X 10*6/uL (4.10-5.20); WBC 10.84 X 10*3/uL (4.50-10.00)
[2022-05-03] MEDS ORDERED: TRILEPTAL PO SCH (09:00)
[2022-05-03] MEDS: DIVALPROEX 500 MG TABLET.DR PO SCH (09:03)
[2022-05-03 09:34] LABS: African American GFR (CKD) 108.4 (60.0-200.0); Anion Gap 12.7 mmol/L (10.00-18.00); BUN/Creat Ratio 12.14 Ratio (12.00-20.00); Blood Urea Nitrogen 8.5 mg/dL (9.0-27.0); Calcium 8.8 mg/dL (8.7-10.3); Carbon Dioxide 21.3 mmol/L (20.0-27.5); Non-African American GFR(CKD) 93.5 (60.0-200.0); Potassium 4.1 mmol/L (3.5-5.5)
[2022-05-03 09:43] LABS: Basophils # (A) 0.01 X 10*3/uL (0.00-0.10); Basophils % (A) 0.1 %; Eosinophils # (A) 0.01 X 10*3/uL (0.04-0.35); Eosinophils % (A) 0.1 %; Immature Grans, Automated 0.4 %; Lymphocytes # (A) 2.43 X 10*3/uL (0.90-5.00); Lymphocytes % (A) 22.4 %; Monocytes # (A) 1.28 X 10*3/uL (0.20-1.00); Monocytes % (A) 11.8 %; Neutrophils # (A) 7.07 X 10*3/uL (1.80-7.70); Neutrophils % (A) 65.2 %
--- NOTE | 2022-05-03 11:53 | P.DS ---
Providers Date of admission: 05/03/22 07:48 Expected date of discharge: 05/03/22 Attending physician: Rosy Sutton DO Consults: 05/02/22 11:27 Consult Physician Routine Consulting Provider: Jumana Emmanuel Consult Reason/Comments: medical management Do you want consulting provider notified?: Yes Primary care physician: Radha Navarro - Discharge Diagnosis(es) (1) Proximal humerus fracture Current Visit: Yes Status: Acute Hospital Course: This is a 62-year-old female who has history of a recent displaced proximal humerus fracture of the right shoulder and presented to discuss surgical options. After discussion and consideration the patient elects to proceed with reverse total shoulder arthroplasty. The pt is seen preoperatively by their family physician and cleared for surgery. The patient is admitted to [facility] on 05/02/2022 for right reverse total shoulder arthroplasty. She is doing well postoperatively. Vital signs and hemoglobin are stable. The pt is able to get up out of bed independently and is ambulating without assistance. Pain is well controlled. Prevena wound vac in place and functioning well. Sling in place. She is able to move her fingers and wrist without difficulty. Some numbness to the fingers after the block. Patient is discharged to home on postoperative day #1 in stable condition. Pertinent Studies: Laboratory Tests 05/03/22 05/03/22 06:21 06:21 WBC 10.84 H Hgb 9.1 L Hct 29.1 L BUN 8.5 L Patient Condition at Discharge: Stable Plan - Discharge Summary Discharge Rx Participant: No New Discharge Prescriptions: New HYDROcodone/APAP 5-325MG [Henderson 5] 1 - 2 each PO Q4-6H PRN #30 tab PRN Reason: Pain Sennosides-Docusate Sodium [Senokot-S] 2 tab PO DAILY #30 tablet No Action rOPINIRole HCL 0.25 mg PO HS Divalproex Sodium [Depakote] 500 mg PO BID Calcium Carbonate [Calcium] 600 mg PO BID Alendronate Sodium 70 mg PO FR Levothyroxine Sodium [Synthroid] 50 mcg PO DAILY Trileptal (Unknown Dose) 1 dose PO TID Albuterol Sulfate [Proventil Hfa] 1 puff INHALATION Q4-6H PRN PRN Reason: Shortness Of Breath Discharge Medication List Calcium Carbonate [Calcium] 600 mg PO BID 09/24/20 [History] Divalproex Sodium [Depakote] 500 mg PO BID 09/24/20 [History] Alendronate Sodium 70 mg PO FR 09/28/20 [History] Albuterol Sulfate [Proventil Hfa] 1 puff INHALATION Q4-6H PRN 04/29/22 [History] Levothyroxine Sodium [Synthroid] 50 mcg PO DAILY 04/29/22 [History] Trileptal (Unknown Dose) 1 dose PO TID 04/29/22 [History] rOPINIRole HCL 0.25 mg PO HS 04/29/22 [History] HYDROcodone/APAP 5-325MG [Henderson 5] 1 - 2 each PO Q4-6H PRN #30 tab 05/03/22 [Rx] Sennosides-Docusate Sodium [Senokot-S] 2 tab PO DAILY #30 tablet 05/03/22 [Rx] Follow up Appointment(s)/Referral(s): Hemalatha Hsu NPC [Nurse Practitioner] - 1 Week Activity/Diet/Wound Care/Special Instructions: Keep arm in sling. May move elbow, wrist, and hand. No lifting with the right arm. Follow up in 1 week for wound vac removal in the office. Call [facility] with any questions or concerns, . Discharge Disposition: HOME SELF-CARE
== END 2022-05-03 13:44 | disposition home or self-care (01) ==
LOC: OR 06:22 → 4SSUR 14:19 → OR 05-03 07:48 → 4SSUR 05-03 07:48
PROVIDERS: ADMIT Orthopaedic Surgery Hand Surgery; ATTEND Orthopaedic Surgery Hand Surgery
DX: S42.291A Other displaced fracture of upper end of right humerus, initial encounter for closed fracture (principal); E03.9 Hypothyroidism, unspecified; G40.909 Epilepsy, unspecified, not intractable, without status epilepticus; F17.200 Nicotine dependence, unspecified, uncomplicated; F31.9 Bipolar disorder, unspecified; J45.909 Unspecified asthma, uncomplicated; F12.90 Cannabis use, unspecified, uncomplicated; D64.9 Anemia, unspecified; G89.18 Other acute postprocedural pain; M81.0 Age-related osteoporosis without current pathological fracture; Z79.899 Other long term (current) drug therapy; Z79.890 Hormone replacement therapy; Z88.5 Allergy status to narcotic agent; Z88.0 Allergy status to penicillin; W10.9XXA Fall (on) (from) unspecified stairs and steps, initial encounter
CPT/HCPCS: 64415; 76942; 80048; 85025; 73020; 23472; G0378; C1776; J2250; J1100; J2710; J2405; J0690; J3010; J2795; J2370; J2704; J1170

== ENCOUNTER → 2022-12-08 | Outpatient (CLI) | payer OTHER ==
--- NOTE | 2022-12-08 11:03 | BD ---
EXAMINATION TYPE: Axial Bone Density DATE OF EXAM: 12/08/2022 CLINICAL HISTORY: 62 years old Female. ICD-10 CODE: M80.0 AGE-REL OSTEOPOR W CURRENT PATH FRACTURE, UN Height: 5 ft 4 in Weight: 86 FRAX RISK QUESTIONS: Alcohol (3 or more units per day): no Family History (Parent hip fracture): no Glucocorticoids (More than 3mos): no (Ex: prednisone, prednisolone, methylprednisolone, dexamethasone, and hydrocortisone). History of Fracture in Adulthood: yes Secondary Osteoporosis: 1. Type 1 Diabetes: no 2. Hyperthyroidism: no 3. Menopause before 45: yes 4. Malnutrition: no 5. Chronic liver disease: no Rheumatoid Arthritis: unknown Current Tobacco Use: yes RISK FACTORS HISTORY OF: Surgery to Spine/Hip(right/left)/Wrist (right/left): left hip replaced When: 2020 Family History of Osteoporosis: no Active: yes Diet low in dairy products/other sources of calcium: no Postmenopausal woman: yes Take estrogen and/or progesterone medications: no Lost more than 2 inches in height since high school: no Frequent falls: no Poor Health: good Hyperparathyroidism: no Adrenal Insufficiency: no MEDICATIONS: Osteoporosis Medications: yes Which medication: boniva How Long: sev years Additional Medications: seizure meds,Boniva ,Remeron, Additional History: EXAM MEASUREMENTS: Bone mineral densitometry was performed using the [employer] System. Bone mineral density as measured about the Lumbar spine is: ----- L1-L4(G/cm2): 0.782 T Score Values are as follows: ----- L1: -3.6 ----- L2: -3.4 ----- L3: -3.2 ----- L4: -3.2 ----- L1-L4: -3.3 Z Score Values are as follows: ----- L1: -2.1 ----- L2: -1.9 ----- L3: -1.7 ----- L4: -1.8 ----- L1-L4: -1.8 Bone mineral density has: decreased -5.8 % since study of: 2019 Bone mineral density about the R hip (g/cm2): 0.704 T Score values are as follows: -----R Neck: -2.4 -----R Total: -2.7 Z Score values are as follows: -----R Neck: -1.5 -----R Total: -2.0 Bone mineral density has: decreased -10.5 % since study of: 2019 FRAX%s: The graph provided illustrates a 7.2 % chance for a major osteoporotic fx and a 2.4 % chance for the hips probability for fx in 10 years time. IMPRESSION: Osteoporosis (T Score less than -2.5). There is increased fracture risk and therapy is usually indicated based on age. Re-Screen 1-2 years. NOTE: T-SCORE=SD OF THE YOUNG ADULT MEAN.
== END | disposition home or self-care (01) ==
LOC: RADBDWWP 12-01 07:53
PROVIDERS: ATTEND Internal Medicine
DX: M81.0 Age-related osteoporosis without current pathological fracture (principal); M85.89 Other specified disorders of bone density and structure, multiple sites; Z78.0 Asymptomatic menopausal state
CPT/HCPCS: 77080

== ENCOUNTER 2023-03-13 22:36 | Emergency (ER) | payer OTHER ==
[2023-03-13] MEDS ORDERED: SODIUM CHLORIDE 0.9% 1,000 ML IV STA (23:05)
[2023-03-13] MEDS ORDERED: ONDANSETRON 4 MG/2 ML VIAL IVP STA (23:05)
--- NOTE | 2023-03-13 23:06 | ED ---
Altered Mental Status HPI - General Stated Complaint: Hypoglycemia Time Seen by Provider: 03/13/23 22:39 Source: RN notes reviewed, old records reviewed, Caregiver Mode of arrival: EMS Limitations: altered mental status, physical limitation - History of Present Illness Initial Comments: This is a 62-year-old female to the emergency department for evaluation. Patient presents today for evaluation regards to unresponsiveness and altered mental status. EMS was called the patient's house by the who states patient was unresponsive, EMS found patient's blood sugar to be less than 40, they did give her fluid and dextrose and that improved her blood sugar the patient does not take any diabetic medication and has no underlying history of diabetes MD Complaint: altered mental status, confusion, decreased responsiveness, weakness -: unknown Severity: severe Consistency of Symptoms: getting worse Associated Symptoms: denies other symptoms Treatments Prior to Arrival: glucose - Related Data Home Medications Medication Instructions Recorded Confirmed Calcium Carbonate [Calcium] 600 mg PO BID 09/24/20 05/02/22 Divalproex Sodium [Depakote] 500 mg PO BID 09/24/20 05/02/22 Alendronate Sodium 70 mg PO FR 09/28/20 05/02/22 Albuterol Sulfate [Proventil Hfa] 1 puff INHALATION Q4-6H PRN 04/29/22 05/02/22 Levothyroxine Sodium [Synthroid] 50 mcg PO DAILY 04/29/22 05/02/22 Trileptal (Unknown Dose) 1 dose PO TID 04/29/22 05/02/22 rOPINIRole HCL 0.25 mg PO HS 04/29/22 05/02/22 Previous Rx's Medication Instructions Recorded HYDROcodone/APAP 5-325MG [Cornish 5] 1 - 2 each PO Q4-6H PRN #30 tab 05/03/22 Sennosides-Docusate Sodium 2 tab PO DAILY #30 tablet 05/03/22 [Senokot-S] Allergies Allergy/AdvReac Type Severity Reaction Status Date / Time codeine Allergy Itching Verified 03/13/23 23:59 Penicillins Allergy Itching Verified 03/13/23 23:59 Review of Systems ROS Statement: Those systems with pertinent positive or pertinent negative responses have been documented in the HPI. ROS Other: All systems not noted in ROS Statement are negative. Past Medical History Past Medical History: Seizure Disorder, Thyroid Disorder Additional Past Medical History / Comment(s): anemia, last seizure 2 1/2 yrs ago., osteoporosis., states she fell on stairs and injured right shoulder 04/12/22. History of Any Multi-Drug Resistant Organisms: None Reported Past Surgical History: Appendectomy Additional Past Surgical History / Comment(s): left hip fx (2020) Past Anesthesia/Blood Transfusion Reactions: No Reported Reaction Additional Past Alcohol Use History / Comment(s): Started smoking at the age of 18 to current; 1 pack every 2 days Past Drug Use History: None Reported - Past Family History Father History Unknown: Yes General Exam Limitations: altered mental status, physical limitation General appearance: alert, in no apparent distress Head exam: Present: atraumatic, normocephalic, normal inspection Eye exam: Present: normal appearance, PERRL, EOMI. Absent: scleral icterus, conjunctival injection, periorbital swelling ENT exam: Present: normal exam, mucous membranes moist Neck exam: Present: normal inspection. Absent: tenderness, meningismus, lymphadenopathy Respiratory exam: Present: normal lung sounds bilaterally. Absent: respiratory distress, wheezes, rales, rhonchi, stridor Cardiovascular Exam: Present: regular rate, normal rhythm, normal heart sounds. Absent: systolic murmur, diastolic murmur, rubs, gallop, clicks GI/Abdominal exam: Present: soft, normal bowel sounds. Absent: distended, tenderness, guarding, rebound, rigid Extremities exam: Present: normal inspection, full ROM, normal capillary refill. Absent: tenderness, pedal edema, joint swelling, calf tenderness Back exam: Present: normal inspection Neurological exam: Present: alert, oriented X3, CN II-XII intact Psychiatric exam: Present: normal affect, normal mood Skin exam: Present: warm, dry, intact, normal color. Absent: rash Course Vital Signs 03/13/23 03/14/23 03/14/23 23:54 01:59 02:02 Temperature 97.6 F Pulse Rate 84 92 91 Respiratory 19 17 17 Rate Blood Pressure 101/53 114/67 101/53 O2 Sat by Pulse 100 99 99 Oximetry 03/14/23 03/14/23 03/14/23 03:00 03:30 05:00 Temperature Pulse Rate 92 93 97 Respiratory 14 14 13 Rate Blood Pressure 114/67 121/66 120/65 O2 Sat by Pulse 100 100 100 Oximetry - Reevaluation(s) Reevaluation #1: 03/13/23 23:44 Medical record is reviewed Reevaluation #2: 03/13/23 23:45 Patient symptoms remained improved blood sugar remains elevated Reevaluation #3: 03/14/23 02:17 Patient symptoms remained improved and she is informed of results and questions are answered Reevaluation #4: 03/13/23 23:44 Was pt. sent in by a medical professional or institution ([facility] Espinoza, [employer], urgent care, hospital, or usp...) When possible be specific @ -no Did you speak to anyone other than the patient for history (EMS, parent, family, police, friend...)? What history was obtained from this source @ -no Did you review nursing and triage notes (agree or disagree)? Why? @ -agree Are old charts reviewed (outside hosp., previous admission, EMS record, old EKG, old radiological studies, urgent care reports/EKG's, usp records)? Report findings @ -yes Differential Diagnosis (chest pain, altered mental status, abdominal pain women, abdominal pain men, vaginal bleeding, weakness, fever, dyspnea, syncope, headache, dizziness, GI bleed, back pain, seizure, CVA, palpatations, mental health, musculoskeletal)? @ -prior EKG interpreted by me (3pts min.). @ -yes X-rays interpreted by me (1pt min.). @ -no CT interpreted by me (1pt min.). @ -no U/S interpreted by me (1pt. min.). @ -no What testing was considered but not performed or refused? (CT, X-rays, U/S, labs)? Why? @ -none What meds were considered but not given or refused? Why? @ -none Did you discuss the management of the patient with other professionals (professionals i.e. [facility]ON Espinoza, [employer], lab, RT, psych nurse, health social work professor, elevator dispatcher, teacher, public health officer, residential case manager)? Give summary @ -no Was smoking cessation discussed for >3mins.? @ -no Was critical care preformed (if so, how long)? @ -no Were there social determinants of health that impacted care today? How? ( Homelessness, low income, unemployed, alcoholism, drug addiction, transportation, low edu. Level, literacy, decrease access to med. care, shelter, rehab)? @ -none Was there de-escalation of care discussed even if they declined (Discuss DNR or withdrawal of care, Hospice)? DNR status @ -no What co-morbidities impacted this encounter? (DM, HTN, Smoking, COPD, CAD, Cancer, CVA, ARF, Chemo, Hep., AIDS, mental health diagnosis, sleep apnea, morbid obesity)? @ -none Was patient admitted / discharged? Hospital course, mention meds given and route, prescriptions, significant lab abnormalities, going to OR and other pertinent info. @ - 62 female does admit to drinking coming in for evaluation of altered mental status EMS was called patient's house they found patient to have low blood sugar patient is since eat and drink blood sugars normal throughout ER stay lab values otherwise significant unremarkable patient can be discharged home feeling well Discharge Undiagnosed new problem with uncertain prognosis? @ -no Drug Therapy requiring intensive monitoring for toxicity (Heparin, Nitro, Insuli n, Cardizem)? @ -no Were any procedures done? @ -no Diagnosis/symptom? @ -Hypoglycemia Acute, or Chronic, or Acute on Chronic? @ -Acute Uncomplicated (without systemic symptoms) or Complicated (systemic symptoms)? @ -Complicated Side effects of treatment? @ -no Exacerbation, Progression, or Severe Exacerbation? @ -exacerbation Poses a threat to life or bodily function? How? (Chest pain, USA, VT, pneumonia, PE, COPD, DKA, ARF, appy, cholecystitis, CVA, Diverticulitis, Homicidal, Suicidal, threat to staff... and all critical care pts) @ -yes Reevaluation #5: 03/13/23 23:44 Differential Altered Mental Status: Hypoglycemia, DKA, hypercapnia, ETOH, overdose, CO poisoning, trauma, myxedema coma, HTN encephalopathy, infection, encephalitis, psychosis, intercranial hemorrhage, hepatic encephalopathy, meningitis, CVA, this is not meant to be an all-inclusive list Medical Decision Making - Medical Decision Making 62 female does admit to drinking coming in for evaluation of altered mental status EMS was called patient's house they found patient to have low blood sugar patient is since eat and drink blood sugars normal throughout ER stay lab values otherwise significant unremarkable patient can be discharged home feeling well - Lab Data Result diagrams: 03/14/23 00:01 03/14/23 00:01 Lab Results 03/13/23 03/14/23 03/14/23 Range/Units 23:28 00:01 00:01 WBC 4.3 (3.8-10.6) k/uL RBC 3.62 L (3.80-5.40) m/uL Hgb 12.2 (11.4-16.0) gm/dL Hct 36.3 (34.0-46.0) % MCV 100.3 H (80.0-100.0) fL MCH 33.6 (25.0-35.0) pg MCHC 33.5 (31.0-37.0) g/dL RDW 13.7 (11.5-15.5) % Plt Count 376 (150-450) k/uL MPV 8.5 Neutrophils % 63 % Lymphocytes % 30 % Monocytes % 3 % Eosinophils % 1 % Basophils % 0 % Neutrophils # 2.7 (1.3-7.7) k/uL Lymphocytes # 1.3 (1.0-4.8) k/uL Monocytes # 0.1 (0-1.0) k/uL Eosinophils # 0.1 (0-0.7) k/uL Basophils # 0.0 (0-0.2) k/uL PT 10.3 (10.0-12.5) sec INR 0.9 (<1.2) APTT 23.1 (22.0-30.0) sec Sodium (137-145) mmol/L Potassium (3.5-5.1) mmol/L Chloride (98-107) mmol/L Carbon Dioxide (22-30) mmol/L Anion Gap mmol/L BUN (7-17) mg/dL Creatinine (0.52-1.04) mg/dL Est GFR (CKD-EPI)AfAm (>60 ml/min/1.73 sqM) Est GFR (CKD-EPI)NonAf (>60 ml/min/1.73 sqM) Glucose (74-99) mg/dL POC Glucose (mg/dL) 195 H (70-110) mg/dL POC Glu Cider Maker ID Achatz, Geovanna Lactic Ac Sepsis Rflx Plasma Lactic Acid Ino (0.7-2.0) mmol/L Calcium (8.4-10.2) mg/dL Phosphorus (2.5-4.5) mg/dL Magnesium (1.6-2.3) mg/dL Total Bilirubin (0.2-1.3) mg/dL AST (14-36) U/L ALT (4-34) U/L Alkaline Phosphatase (38-126) U/L Troponin I (0.000-0.034) ng/mL NT-Pro-B Natriuret Pep pg/mL Total Protein (6.3-8.2) g/dL Albumin (3.5-5.0) g/dL TSH (0.465-4.680) mIU/L Urine Color Urine Appearance (Clear) Urine pH (5.0-8.0) Ur Specific [place] (1.001-1.035) Urine Protein (Negative) Urine Glucose (UA) (Negative) Urine Ketones (Negative) Urine Blood (Negative) Urine Nitrite (Negative) Urine Bilirubin (Negative) Urine Urobilinogen (<2.0) mg/dL Ur Leukocyte Esterase (Negative) Urine RBC (0-5) /hpf Urine WBC (0-5) /hpf Ur Squamous Epith Cells (0-4) /hpf Urine Bacteria (None) /hpf Hyaline Casts (0-2) /lpf Urine Mucus (None) /hpf Urine Yeast (Budding) (None) /hpf Serum Alcohol mg/dL 03/14/23 03/14/23 03/14/23 Range/Units 00:01 00:01 00:01 WBC (3.8-10.6) k/uL RBC (3.80-5.40) m/uL Hgb (11.4-16.0) gm/dL Hct (34.0-46.0) % MCV (80.0-100.0) fL MCH (25.0-35.0) pg MCHC (31.0-37.0) g/dL RDW (11.5-15.5) % Plt Count (150-450) k/uL MPV Neutrophils % % Lymphocytes % % Monocytes % % Eosinophils % % Basophils % % Neutrophils # (1.3-7.7) k/uL Lymphocytes # (1.0-4.8) k/uL Monocytes # (0-1.0) k/uL Eosinophils # (0-0.7) k/uL Basophils # (0-0.2) k/uL PT (10.0-12.5) sec INR (<1.2) APTT (22.0-30.0) sec Sodium 138 (137-145) mmol/L Potassium 3.6 (3.5-5.1) mmol/L Chloride 98 (98-107) mmol/L Carbon Dioxide 23 (22-30) mmol/L Anion Gap 17 mmol/L BUN 14 (7-17) mg/dL Creatinine 0.46 L (0.52-1.04) mg/dL Est GFR (CKD-EPI)AfAm >90 (>60 ml/min/1.73 sqM) Est GFR (CKD-EPI)NonAf >90 (>60 ml/min/1.73 sqM) Glucose 216 H (74-99) mg/dL POC Glucose (mg/dL) (70-110) mg/dL POC Glu Cider Maker ID Lactic Ac Sepsis Rflx Plasma Lactic Acid Ino 3.1 H* (0.7-2.0) mmol/L Calcium 9.0 (8.4-10.2) mg/dL Phosphorus 3.7 (2.5-4.5) mg/dL Magnesium 1.2 L (1.6-2.3) mg/dL Total Bilirubin 0.4 (0.2-1.3) mg/dL AST 45 H (14-36) U/L ALT 23 (4-34) U/L Alkaline Phosphatase 83 (38-126) U/L Troponin I <0.012 (0.000-0.034) ng/mL NT-Pro-B Natriuret Pep 222 pg/mL Total Protein 7.1 (6.3-8.2) g/dL Albumin 4.5 (3.5-5.0) g/dL TSH 0.309 L (0.465-4.680) mIU/L Urine Color Urine Appearance (Clear) Urine pH (5.0-8.0) Ur Specific [place] (1.001-1.035) Urine Protein (Negative) Urine Glucose (UA) (Negative) Urine Ketones (Negative) Urine Blood (Negative) Urine Nitrite (Negative) Urine Bilirubin (Negative) Urine Urobilinogen (<2.0) mg/dL Ur Leukocyte Esterase (Negative) Urine RBC (0-5) /hpf Urine WBC (0-5) /hpf Ur Squamous Epith Cells (0-4) /hpf Urine Bacteria (None) /hpf Hyaline Casts (0-2) /lpf Urine Mucus (None) /hpf Urine Yeast (Budding) (None) /hpf Serum Alcohol <10 mg/dL 03/14/23 03/14/23 03/14/23 Range/Units 01:48 02:45 04:25 WBC (3.8-10.6) k/uL RBC (3.80-5.40) m/uL Hgb (11.4-16.0) gm/dL Hct (34.0-46.0) % MCV (80.0-100.0) fL MCH (25.0-35.0) pg MCHC (31.0-37.0) g/dL RDW (11.5-15.5) % Plt Count (150-450) k/uL MPV Neutrophils % % Lymphocytes % % Monocytes % % Eosinophils % % Basophils % % Neutrophils # (1.3-7.7) k/uL Lymphocytes # (1.0-4.8) k/uL Monocytes # (0-1.0) k/uL Eosinophils # (0-0.7) k/uL Basophils # (0-0.2) k/uL PT (10.0-12.5) sec INR (<1.2) APTT (22.0-30.0) sec Sodium (137-145) mmol/L Potassium (3.5-5.1) mmol/L Chloride (98-107) mmol/L Carbon Dioxide (22-30) mmol/L Anion Gap mmol/L BUN (7-17) mg/dL Creatinine (0.52-1.04) mg/dL Est GFR (CKD-EPI)AfAm (>60 ml/min/1.73 sqM) Est GFR (CKD-EPI)NonAf (>60 ml/min/1.73 sqM) Glucose (74-99) mg/dL POC Glucose (mg/dL) (70-110) mg/dL POC Glu Cider Maker ID Lactic Ac Sepsis Rflx Y Plasma Lactic Acid Ino 1.4 (0.7-2.0) mmol/L Calcium (8.4-10.2) mg/dL Phosphorus (2.5-4.5) mg/dL Magnesium (1.6-2.3) mg/dL Total Bilirubin (0.2-1.3) mg/dL AST (14-36) U/L ALT (4-34) U/L Alkaline Phosphatase (38-126) U/L Troponin I (0.000-0.034) ng/mL NT-Pro-B Natriuret Pep pg/mL Total Protein (6.3-8.2) g/dL Albumin (3.5-5.0) g/dL TSH (0.465-4.680) mIU/L Urine Color Yellow Urine Appearance Cloudy H (Clear) Urine pH 5.5 (5.0-8.0) Ur Specific [place] 1.022 (1.001-1.035) Urine Protein Trace H (Negative) Urine Glucose (UA) Negative (Negative) Urine Ketones 1+ H (Negative) Urine Blood Negative (Negative) Urine Nitrite Negative (Negative) Urine Bilirubin Negative (Negative) Urine Urobilinogen <2.0 (<2.0) mg/dL Ur Leukocyte Esterase Negative (Negative) Urine RBC 1 (0-5) /hpf Urine WBC 1 (0-5) /hpf Ur Squamous Epith Cells 5 H (0-4) /hpf Urine Bacteria Occasional H (None) /hpf Hyaline Casts 48 H (0-2) /lpf Urine Mucus Rare H (None) /hpf Urine Yeast (Budding) Few H (None) /hpf Serum Alcohol mg/dL - EKG Data -: EKG Interpreted by Me (EKG is sinus 79 VT 160 QRS 72 QTC 442) Disposition Clinical Impression: Weakness, Altered mental state Disposition: HOME SELF-CARE Condition: Fair Instructions (If sedation given, give patient instructions): Weakness (ED) Is patient prescribed a controlled substance at d/c from ED?: No Referrals: Radha Nvaarro MD [Primary Care Provider] - 1-2 days Time of Disposition: 02:00
[2023-03-13 23:31] LABS: Glucose,Whole Blood 195 mg/dL (70-110)
[2023-03-14 00:20] VITALS: TEMP 97.6
[2023-03-14 01:03] LABS: ALT 23 U/L (4-34); AST 45 U/L (14-36); African American GFR (CKD) >90 (>60 ml/min/1.73 sqM); Albumin 4.5 g/dL (3.5-5.0); Alcohol <10 mg/dL; Alkaline Phosphatase 83 U/L (38-126); Anion Gap 17 mmol/L; Blood Urea Nitrogen 14 mg/dL (7-17); Carbon Dioxide 23 mmol/L (22-30); Chloride 98 mmol/L (98-107); Glucose 216 mg/dL (74-99); Magnesium 1.2 mg/dL (1.6-2.3); Non-African American GFR(CKD) >90 (>60 ml/min/1.73 sqM); Phosphorus 3.7 mg/dL (2.5-4.5); Potassium 3.6 mmol/L (3.5-5.1); Sodium 138 mmol/L (137-145); Total Bilirubin 0.4 mg/dL (0.2-1.3); Total Protein 7.1 g/dL (6.3-8.2)
[2023-03-14 01:10] LABS: Basophils % (A) 0 %; Eosinophils # (A) 0.1 k/uL (0-0.7); Eosinophils % (A) 1 %; HCT 36.3 % (34.0-46.0); HGB 12.2 gm/dL (11.4-16.0); Lymphocytes # (A) 1.3 k/uL (1.0-4.8); Lymphocytes % (A) 30 %; MCH 33.6 pg (25.0-35.0); MCHC 33.5 g/dL (31.0-37.0); MCV 100.3 fL (80.0-100.0); Mean Platelet Volume 8.5; Monocytes # (A) 0.1 k/uL (0-1.0); Monocytes % (A) 3 %; Neutrophils # (A) 2.7 k/uL (1.3-7.7); Neutrophils % (A) 63 %; Platelet Count 376 k/uL (150-450); RBC 3.62 m/uL (3.80-5.40); RDW 13.7 % (11.5-15.5); WBC 4.3 k/uL (3.8-10.6)
[2023-03-14 01:11] LABS: NT-Pro-B-Type Natriuretic Pept 222 pg/mL
[2023-03-14 01:15] LABS: INR 0.9 (<1.2); Partial Thromboplastin Time 23.1 sec (22.0-30.0); Prothrombin Time 10.3 sec (10.0-12.5)
[2023-03-14] MEDS ORDERED: MAGNESIUM OXIDE 400 MG TAB PO STA ×2 (02:16)
[2023-03-14] MEDS ORDERED: MAGNESIUM SULFATE-D5W PMX 1 GM in DEXTROSE/WATER 1 100ML.BAG IVPB ONE (02:16)
[2023-03-14 05:05] VITALS: BP 120/65; PULSE 97; RESP 13
[2023-03-14 05:59] LABS: Appearance,Urine Cloudy (Clear); Bacteria,Urine Occasional /hpf; Bilirubin,Urine Negative (Negative); Blood,Urine Negative (Negative); Budding Yeast,Urine Few /hpf; Color,Urine Yellow; Glucose,Urine (UA) Negative (Negative); Hyaline Casts,Urine 48 /lpf (0-2); Ketones,Urine 1+ (Negative); Leukocyte Esterase,Urine Negative (Negative); Mucus,Urine Rare /hpf; Nitrite,Urine Negative (Negative); PH, Urine 5.5 (5.0-8.0); Protein,Urine Trace (Negative); RBC,Urine 1 /hpf (0-5); Specific Gravity,Urine 1.022 (1.001-1.035); Squamous Epithelial Cell,Urine 5 /hpf (0-4); Urobilinogen,Urine <2.0 mg/dL (<2.0); WBC,Urine 1 /hpf (0-5)
== END 2023-03-14 05:18 | disposition home or self-care (01) ==
LOC: EC 22:36
DX: R41.82 Altered mental status, unspecified (principal); R53.1 Weakness; E07.9 Disorder of thyroid, unspecified; M81.0 Age-related osteoporosis without current pathological fracture; Z88.0 Allergy status to penicillin; Z88.5 Allergy status to narcotic agent; Z79.890 Hormone replacement therapy; Z79.899 Other long term (current) drug therapy
CPT/HCPCS: 36415; 93005; 83880; 80053; 83605; 83735; 84100; 84443; 84484; 85025; 85610; 85730; 81001; 99285; 96365; 96366; 96375; 96361 ×2; G0480; J2405; J3475; 80320

== ENCOUNTER → 2023-10-06 | Outpatient (CLI) | payer OTHER ==
--- NOTE | 2023-10-09 10:22 | MM ---
Reason for Exam: Screening (asymptomatic). Last mammogram was performed 3 year(s) and 3 month(s) ago. Patient History: Menarche at age 12. First Full-Term at age 18. Postmenopausal. 09/29/2020, Benign Core Biopsy on the right side. Risk Values: Fay 5 year model risk: 1.5%. NCI Lifetime model risk: 6.5%. Prior Study Comparison: 08/14/2017 Bilateral Screening Mammogram, [facility]. 01/30/2019 Bilateral Screening Mammogram, [facility]. 06/11/2020 Bilateral Screening Mammogram, [facility]. 07/01/2020 Right Diagnostic Mammogram, [facility]. 04/16/2021 Right Diagnostic Mammogram, [facility]. Tissue Density: The breasts are heterogeneously dense, which may obscure small masses. Findings: Analyzed By CAD. Right breast: There is no suspicious group of microcalcifications or new suspicious mass. Benign-appearing calcifications right breast. Left breast: There is no suspicious group of microcalcifications or new suspicious mass. Benign-appearing calcifications left breast. Overall Assessment: Negative, BI-RAD 1 Management: Screening Mammogram of both breasts in [address] [facility] will attempt to contact patient to return for supplemental views and ultrasound if indicated. Patient should continue monthly self-breast exams. A clinical breast exam by your physician is recommended on an annual basis. This exam should not preclude additional follow-up of suspicious palpable abnormalities. Note on Fay scores and lifetime risk: 1. A Fay score greater than 3% is considered moderate risk. If this is the case, consider specialist referral to assess eligibility for a risk reducing agent. 2. If overall lifetime risk for the development of breast cancer is 20% or higher, the patient may qualify for future screening with alternating mammogram and breast MRI. Electronically signed and approved by: Ghassan Kerns DO
== END | disposition home or self-care (01) ==
LOC: RADMAMWWP 09:30
PROVIDERS: ATTEND Family Medicine
DX: Z12.31 Encounter for screening mammogram for malignant neoplasm of breast (principal); Z78.0 Asymptomatic menopausal state
CPT/HCPCS: 77063; 77067

== ENCOUNTER 2023-10-18 11:59 | Inpatient (IN) | payer OTHER ==
[2023-10-18 12:25] LABS: Glucose,Whole Blood 221 mg/dL (70-110)
--- NOTE | 2023-10-18 12:46 | ED ---
General Adult HPI - General Chief complaint: Weakness Stated complaint: hyperglycemia Time Seen by Provider: 10/18/23 12:05 Source: patient, EMS, RN notes reviewed, old records reviewed Mode of arrival: wheelchair - History of Present Illness Initial comments: This is a 63-year-old female who presents to the emergency department after having been unresponsive. According to EMS the called because she became unresponsive they were drinking this morning she claims only drank 3 shots of vodka. Patient denies being a diabetic. According to EMS when they arrived the sugar was 20 they gave her amp of D50 and her sugar went up to 280 and she awoke and was able to answer some questions. Patient still complains of some nausea. Patient denies any chest pain or difficulty breathing. Patient has any abdominal pain patient Nuys any diarrhea. Patient Nuys any recent fever chills or cough. - Related Data Home Medications Medication Instructions Recorded Confirmed Calcium Carbonate [Calcium] 600 mg PO BID 09/24/20 10/18/23 Divalproex Sodium [Depakote] 500 mg PO BID 09/24/20 10/18/23 Alendronate Sodium 70 mg PO MO 09/28/20 10/18/23 rOPINIRole HCL 0.25 mg PO HS 04/29/22 10/18/23 Cholecalciferol (Vitamin D3) 50 mcg PO DAILY 10/18/23 10/18/23 [Vitamin D3 (50 Mcg = 2000 Iu)] Ferrous Sulfate [Feosol] 325 mg PO DAILY 10/18/23 10/18/23 Folic Acid 1 mg PO DAILY 10/18/23 10/18/23 Mirtazapine [Remeron] 15 mg PO HS 10/18/23 10/18/23 OXcarbazepine [Trileptal] 150 mg PO DAILY 10/18/23 10/18/23 Allergies Allergy/AdvReac Type Severity Reaction Status Date / Time codeine Allergy Itching Verified 10/18/23 13:47 Penicillins Allergy Itching Verified 10/18/23 13:47 Review of Systems ROS Statement: Those systems with pertinent positive or pertinent negative responses have been documented in the HPI. ROS Other: All systems not noted in ROS Statement are negative. Past Medical History Past Medical History: Seizure Disorder, Thyroid Disorder Additional Past Medical History / Comment(s): anemia, last seizure 2 1/2 yrs ago., osteoporosis., states she fell on stairs and injured right shoulder 04/12/22. History of Any Multi-Drug Resistant Organisms: None Reported Past Surgical History: Appendectomy Additional Past Surgical History / Comment(s): left hip fx (2020) Past Anesthesia/Blood Transfusion Reactions: No Reported Reaction Past Psychological History: Bipolar Past Drug Use History: None Reported - Past Family History Father History Unknown: Yes General Exam - General Exam Comments Initial Comments: GENERAL: Patient is well-developed and well-nourished. Patient is nontoxic and well- hydrated and is in mild distress. ENT: Neck is soft and supple. No significant lymphadenopathy is noted. Oropharynx is clear. Moist mucous membranes. Neck has full range of motion without eliciting any pain. EYES: The sclera were anicteric and conjunctiva were pink and moist. Extraocular movements were intact and pupils were equal round and reactive to light. Eyel ids were unremarkable. PULMONARY: Unlabored respirations. Good breath sounds bilaterally. No audible rales rhonchi or wheezing was noted. CARDIOVASCULAR: There is a regular rate and rhythm without any murmurs gallops or rubs. ABDOMEN: Soft and nontender with normal bowel sounds. SKIN: Skin is clear with no lesions or rashes and otherwise unremarkable. NEUROLOGIC: Patient is alert and oriented x3. Cranial nerves II through XII are grossly intact. Motor and sensory are also intact. Normal speech, volume and content. Symmetrical smile. MUSCULOSKELETAL: Normal extremities with adequate strength and full range of motion. LYMPHATICS: No significant lymphadenopathy is noted PSYCHIATRIC: Normal psychiatric evaluation. Course Vital Signs 10/18/23 10/18/23 12:03 14:26 Temperature 97.5 F L Pulse Rate 94 89 Respiratory 16 16 Rate Blood Pressure 121/62 125/82 O2 Sat by Pulse 100 10 L Oximetry Medical Decision Making - Medical Decision Making EKG is interpreted by myself but EKG shows a sinus rhythm at 92 bpm parables 144 QRS is 82 QT interval 373 QTc is 422. Patient's EKG shows no ST segment elevation. Was pt. sent in by a medical professional or institution (, [facility], [employer]ATION TEACHER, urgent care, hospital, or alf...) When possible be specific @ -No Did you speak to anyone other than the patient for history (EMS, parent, family, police, friend...)? What history was obtained from this source @ -EMS gave us the history because patient was unresponsive initially Did you review nursing and triage notes (agree or disagree)? Why? @ -I reviewed and agree with nursing and triage notes Were old charts reviewed (outside hosp., previous admission, EMS record, old EKG, old radiological studies, urgent care reports/EKG's, alf records)? Report findings @ -No old charts were reviewed Differential Diagnosis (chest pain, altered mental status, abdominal pain women, abdominal pain men, vaginal bleeding, weakness, fever, dyspnea, syncope, heada rommel, dizziness, GI bleed, back pain, seizure, CVA, palpatations, mental health, musculoskeletal)? @ -Differential Altered Mental Status: Hypoglycemia, DKA, hypercapnia, ETOH, overdose, CO poisoning, trauma, myxedema coma, HTN encephalopathy, infection, encephalitis, psychosis, intercranial hemorrhage, hepatic encephalopathy, meningitis, CVA, this is not meant to be an all-inclusive list EKG interpreted by me (3pts min.). @ -As above X-rays interpreted by me (1pt min.). @ -None done CT interpreted by me (1pt min.). @ -None done U/S interpreted by me (1pt. min.). @ -None done What testing was considered but not performed or refused? (CT, X-rays, U/S, labs)? Why? @ -None What meds were considered but not given or refused? Why? @ -None Did you discuss the management of the patient with other professionals (professionals i.e. , PA, PRESCHOOL SPECIAL EDUCATION TEACHER, lab, RT, psych nurse, pediatric social worker, manager respiratory, teacher, combat information center officer, rn case management)? Give summary @ -I spoke with Dr. Ly he agreed to admit the patient Was smoking cessation discussed for >3mins.? @ -No Was critical care preformed (if so, how long)? @ -No Were there social determinants of health that impacted care today? How? (Homelessness, low income, unemployed, alcoholism, drug addiction, transportation, low edu. Level, literacy, decrease access to med. care, nursing home, rehab)? @ -No Was there de-escalation of care discussed even if they declined (Discuss DNR or withdrawal of care, Hospice)? DNR status @ -No What co-morbidities impacted this encounter? (DM, HTN, Smoking, COPD, CAD, Cancer, CVA, ARF, Chemo, Hep., AIDS, mental health diagnosis, sleep apnea, morbid obesity)? @ -None Was patient admitted / discharged? Hospital course, mention meds given and route, prescriptions, significant lab abnormalities, going to OR and other pertinent info. @ -Patient was given glucose on the way end and became alert and oriented. However patient's magnesium was 0.9 so I gave the patient 2 g of magnesium sulfate IV. Spoke with Dr. Ly he agreed to admit the patient admit the patient and wrote admitting orders Undiagnosed new problem with uncertain prognosis? @ -No Drug Therapy requiring intensive monitoring for toxicity (Heparin, Nitro, I nsulin, Cardizem)? @ -No Were any procedures done? @ -No Diagnosis/symptom? @ -Hypoglycemia Acute, or Chronic, or Acute on Chronic? @ -Acute Uncomplicated (without systemic symptoms) or Complicated (systemic symptoms)? @ -Complicated Side effects of treatment? @ -No Exacerbation, Progression, or Severe Exacerbation? @ -No Poses a threat to life or bodily function? How? (Chest pain, USA, CT, pneumonia, PE, COPD, DKA, ARF, appy, cholecystitis, CVA, Diverticulitis, Homicidal, Suicidal, threat to staff... and all critical care pts) @ -Yes this can lead to significant altered mental status and Diagnosis/symptom? @ -Hypomagnesemia Acute, or Chronic, or Acute on Chronic? @ -Default Uncomplicated (without systemic symptoms) or Complicated (systemic symptoms)? @ -Complicated Side effects of treatment? @ -None Exacerbation, Progression, or Severe Exacerbation] @ -No Poses a threat to life or bodily function? @ -No Diagnosis/symptom? @ -Alcohol abuse Acute, or Chronic, or Acute on Chronic? @ -Acute on chronic Uncomplicated (without systemic symptoms) or Complicated (systemic symptoms)? @ -Complicated Side effects of treatment? @ -None Exacerbation, Progression, or Severe Exacerbation] @ -No Poses a threat to life or bodily function? @ -No - Lab Data Result diagrams: 10/18/23 12:38 10/18/23 12:38 Lab Results 10/18/23 10/18/23 10/18/23 Range/Units 12:23 12:38 12:38 WBC 10.5 (3.8-10.6) k/uL RBC 3.56 L (3.80-5.40) m/uL Hgb 12.2 (11.4-16.0) gm/dL Hct 37.5 (34.0-46.0) % MCV 105.1 H (80.0-100.0) fL MCH 34.2 (25.0-35.0) pg MCHC 32.6 (31.0-37.0) g/dL RDW 14.2 (11.5-15.5) % Plt Count 285 (150-450) k/uL MPV 8.2 Neutrophils % 86 % Lymphocytes % 7 % Monocytes % 4 % Eosinophils % 2 % Basophils % 0 % Neutrophils # 9.0 H (1.3-7.7) k/uL Lymphocytes # 0.7 L (1.0-4.8) k/uL Monocytes # 0.5 (0-1.0) k/uL Eosinophils # 0.2 (0-0.7) k/uL Basophils # 0.0 (0-0.2) k/uL Macrocytosis Moderate Sodium 142 (137-145) mmol/L Potassium 3.6 (3.5-5.1) mmol/L Chloride 107 (98-107) mmol/L Carbon Dioxide 16 L (22-30) mmol/L Anion Gap 19 mmol/L BUN 16 (7-17) mg/dL Creatinine 0.60 (0.52-1.04) mg/dL Est GFR (CKD-EPI)AfAm >90 (>60 ml/min/1.73 sqM) Est GFR (CKD-EPI)NonAf >90 (>60 ml/min/1.73 sqM) Glucose 161 H (74-99) mg/dL POC Glucose (mg/dL) 221 H (70-110) mg/dL POC Glu Global Category Manager ID Brittany Taveras Calcium 8.8 (8.4-10.2) mg/dL Magnesium 0.9 L* (1.6-2.3) mg/dL Total Bilirubin 0.6 (0.2-1.3) mg/dL AST 60 H (14-36) U/L ALT 26 (4-34) U/L Alkaline Phosphatase 86 (38-126) U/L Total Protein 7.1 (6.3-8.2) g/dL Albumin 4.8 (3.5-5.0) g/dL Urine Color Urine Appearance (Clear) Urine pH (5.0-8.0) Ur Specific [place] (1.001-1.035) Urine Protein (Negative) Urine Glucose (UA) (Negative) Urine Ketones (Negative) Urine Blood (Negative) Urine Nitrite (Negative) Urine Bilirubin (Negative) Urine Urobilinogen (<2.0) mg/dL Ur Leukocyte Esterase (Negative) Urine WBC (0-5) /hpf Ur Squamous Epith Cells (0-4) /hpf Urine Bacteria (None) /hpf Urine Mucus (None) /hpf Serum Alcohol <10 mg/dL 10/18/23 10/18/23 Range/Units 12:38 14:48 WBC (3.8-10.6) k/uL RBC (3.80-5.40) m/uL Hgb (11.4-16.0) gm/dL Hct (34.0-46.0) % MCV (80.0-100.0) fL MCH (25.0-35.0) pg MCHC (31.0-37.0) g/dL RDW (11.5-15.5) % Plt Count (150-450) k/uL MPV Neutrophils % % Lymphocytes % % Monocytes % % Eosinophils % % Basophils % % Neutrophils # (1.3-7.7) k/uL Lymphocytes # (1.0-4.8) k/uL Monocytes # (0-1.0) k/uL Eosinophils # (0-0.7) k/uL Basophils # (0-0.2) k/uL Macrocytosis Sodium (137-145) mmol/L Potassium (3.5-5.1) mmol/L Chloride (98-107) mmol/L Carbon Dioxide (22-30) mmol/L Anion Gap mmol/L BUN (7-17) mg/dL Creatinine (0.52-1.04) mg/dL Est GFR (CKD-EPI)AfAm (>60 ml/min/1.73 sqM) Est GFR (CKD-EPI)NonAf (>60 ml/min/1.73 sqM) Glucose (74-99) mg/dL POC Glucose (mg/dL) (70-110) mg/dL POC Glu Global Category Manager ID Calcium (8.4-10.2) mg/dL Magnesium 1.0 L (1.6-2.3) mg/dL Total Bilirubin (0.2-1.3) mg/dL AST (14-36) U/L ALT (4-34) U/L Alkaline Phosphatase (38-126) U/L Total Protein (6.3-8.2) g/dL Albumin (3.5-5.0) g/dL Urine Color Colorless Urine Appearance Clear (Clear) Urine pH 5.5 (5.0-8.0) Ur Specific [place] 1.017 (1.001-1.035) Urine Protein Trace H (Negative) Urine Glucose (UA) 2+ H (Negative) Urine Ketones 3+ H (Negative) Urine Blood Negative (Negative) Urine Nitrite Positive H (Negative) Urine Bilirubin Negative (Negative) Urine Urobilinogen <2.0 (<2.0) mg/dL Ur Leukocyte Esterase Negative (Negative) Urine WBC 4 (0-5) /hpf Ur Squamous Epith Cells 1 (0-4) /hpf Urine Bacteria Occasional H (None) /hpf Urine Mucus Rare H (None) /hpf Serum Alcohol mg/dL Disposition Clinical Impression: Hypoglycemia, Hypomagnesemia, Alcohol abuse Disposition: ADMITTED IP TO THIS HOSP Referrals: Radha Navarro MD [Primary Care Provider] - 1-2 days Time of Disposition: 15:20
[2023-10-18 13:11] LABS: Appearance,Urine Clear (Clear); Bacteria,Urine Occasional /hpf; Bilirubin,Urine Negative (Negative); Blood,Urine Negative (Negative); Color,Urine Colorless; Glucose,Urine (UA) 2+ (Negative); Leukocyte Esterase,Urine Negative (Negative); Mucus,Urine Rare /hpf; Nitrite,Urine Positive (Negative); PH, Urine 5.5 (5.0-8.0); Protein,Urine Trace (Negative); Specific Gravity,Urine 1.017 (1.001-1.035); Squamous Epithelial Cell,Urine 1 /hpf (0-4); Urobilinogen,Urine <2.0 mg/dL (<2.0); WBC,Urine 4 /hpf (0-5)
[2023-10-18 13:15] LABS: Ketones,Urine 3+ (Negative)
[2023-10-18 13:52] LABS: Basophils % (A) 0 %; Eosinophils # (A) 0.2 k/uL (0-0.7); Eosinophils % (A) 2 %; HCT 37.5 % (34.0-46.0); HGB 12.2 gm/dL (11.4-16.0); Lymphocytes # (A) 0.7 k/uL (1.0-4.8); Lymphocytes % (A) 7 %; MCH 34.2 pg (25.0-35.0); MCHC 32.6 g/dL (31.0-37.0); MCV 105.1 fL (80.0-100.0); Macrocytosis Moderate; Mean Platelet Volume 8.2; Monocytes # (A) 0.5 k/uL (0-1.0); Monocytes % (A) 4 %; Neutrophils % (A) 86 %; Platelet Count 285 k/uL (150-450); RBC 3.56 m/uL (3.80-5.40); RDW 14.2 % (11.5-15.5); WBC 10.5 k/uL (3.8-10.6)
[2023-10-18] MEDS: SODIUM CHLORIDE 0.9% 1,000 ML IV ONE ×2 (13:57→16:24)
[2023-10-18 14:05] LABS: ALT 26 U/L (4-34); AST 60 U/L (14-36); African American GFR (CKD) >90 (>60 ml/min/1.73 sqM); Albumin 4.8 g/dL (3.5-5.0); Alcohol <10 mg/dL; Alkaline Phosphatase 86 U/L (38-126); Anion Gap 19 mmol/L; Blood Urea Nitrogen 16 mg/dL (7-17); Calcium 8.8 mg/dL (8.4-10.2); Carbon Dioxide 16 mmol/L (22-30); Chloride 107 mmol/L (98-107); Glucose 161 mg/dL (74-99); Non-African American GFR(CKD) >90 (>60 ml/min/1.73 sqM); Potassium 3.6 mmol/L (3.5-5.1); Sodium 142 mmol/L (137-145); Total Bilirubin 0.6 mg/dL (0.2-1.3); Total Protein 7.1 g/dL (6.3-8.2)
--- NOTE | 2023-10-18 14:09 | XR ---
EXAMINATION TYPE: XR chest 2V DATE OF EXAM: 10/18/2023 COMPARISON: NONE HISTORY: Shortness of breath TECHNIQUE: Frontal and lateral views of the chest are obtained. FINDINGS: Scattered senescent parenchymal changes noted. Hyperinflation compatible with COPD. No evidence for infiltrate. No evidence for atelectasis. Heart size is stable. Mediastinal structures are stable and grossly unremarkable. No evidence for hilar prominence. Degenerative changes dorsal spine. IMPRESSION: 1. No evidence for acute pulmonary disease.
[2023-10-18 14:16] LABS: Magnesium 0.9 mg/dL (1.6-2.3)
[2023-10-18] MEDS: MAGNESIUM SULFATE-D5W PMX 1 GM in DEXTROSE/WATER 1 100ML.BAG IVPB SCH ×2 (16:21→22:40)
[2023-10-18 16:27] VITALS: RESP 18
[2023-10-18 16:30] LABS: Glucose,Whole Blood 78 mg/dL (70-110)
[2023-10-18] MEDS: IBUPROFEN 400 MG TAB PO PRN (18:44)
[2023-10-18] MEDS: DIVALPROEX 500 MG TABLET.DR PO SCH (22:39)
[2023-10-18] MEDS: MIRTAZAPINE 15 MG TAB PO SCH (22:39)
[2023-10-18] MEDS: SODIUM CHLORIDE 0.9% 1,000 ML IV SCH (22:41)
[2023-10-18] MEDS: THIAMINE 100 MG TAB PO SCH (22:48)
--- NOTE | 2023-10-18 23:53 | P.HPIM ---
History of Present Illness H&P Date: 10/18/23 Chief Complaint: Altered mental status Patient is a 63-year-old female with a known history of hypothyroidism, seizure disorder, bipolar disorder, current everyday smoker and occasional marijuana usePatient was brought to the hospital and she was found unresponsive at home. Patient's called EMS. Patient states that she has been drinking with her and took only 2 shots of vodka. Patient has not been eating well recently. She was found to be hypoglycemic with blood sugar 20 when EMS found her and was given 1 amp of D50. Patient was able to wake up and answer questions with improving mental status. Patient was also complaining of nausea and vomiting x 1. Patient is not diabetic. Patient denied drinking on daily basis. Otherwise no complaints of chest pain or shortness of breath. No fever no chills. Any recent illnesses. No abdominal pain. No cough or sputum production. Chest x-ray showed no acute pulmonary process. EKG showed sinus rhythm with possible right atrial enlargement. Laboratory data showed WBC 10.5 hemoglobin 12.2 and MCV 105.1, platelets 285 Sodium 142 potassium 3.6 chloride 107 bicarb is 16 BUN 16 creatinine 0.6 and blood sugar 161, lactic acid 2.6 and magnesium 0.9, AST 60 ALT 76 and alk phos 86. Urinalysis showed 2+ glucose 3+ ketones and nitrite positive. Leukocyte esterase negative. WBCs 4. Squamous appearances 1. Serum alcohol level is less than 10. Review of Systems Constitutional: Patient denies any fever or chills . No generalized weakness or weight loss. Abdomen: Patient denied nausea vomiting and diarrhea and abdominal pain. Cardiovascular: Patient denies any chest pain or short of breath no palpitations. Respiratory: patient denied any cough or sputum production. No shortness of breath Neurologic: Patient denied any numbness or tingling. no headache. Musculoskeletal: Patient denies any complaints of joint swelling or deformity. Skin: Negative Psychiatric: Negative Endocrine: No heat or cold intolerance. No recent weight gain. Genitourinary: No dysuria or hematuria. All other 14 point ROS negative except the above Past Medical History Past Medical History: Seizure Disorder, Thyroid Disorder Additional Past Medical History / Comment(s): anemia, last seizure 2 1/2 yrs ago., osteoporosis., states she fell on stairs and injured right shoulder 04/12/22. History of Any Multi-Drug Resistant Organisms: None Reported Past Surgical History: Appendectomy Additional Past Surgical History / Comment(s): left hip fx (2020) Past Anesthesia/Blood Transfusion Reactions: No Reported Reaction Past Psychological History: Bipolar Smoking Status: Current every day smoker Past Alcohol Use History: Occasional Additional Past Alcohol Use History / Comment(s): Started smoking at the age of 18 to current; 1 pack every 2 days Past Drug Use History: None Reported Additional Drug Use History / Comment(s): occasional marijuana - Past Family History Father History Unknown: Yes Medications and Allergies Home Medications Medication Instructions Recorded Confirmed Type Calcium Carbonate [Calcium] 600 mg PO BID 09/24/20 10/18/23 History Divalproex Sodium [Depakote] 500 mg PO BID 09/24/20 10/18/23 History Alendronate Sodium 70 mg PO MO 09/28/20 10/18/23 History rOPINIRole HCL 0.25 mg PO HS 04/29/22 10/18/23 History Cholecalciferol (Vitamin D3) 50 mcg PO DAILY 10/18/23 10/18/23 History [Vitamin D3 (50 Mcg = 2000 Iu)] Ferrous Sulfate [Feosol] 325 mg PO DAILY 10/18/23 10/18/23 History Folic Acid 1 mg PO DAILY 10/18/23 10/18/23 History Mirtazapine [Remeron] 15 mg PO HS 10/18/23 10/18/23 History OXcarbazepine [Trileptal] 150 mg PO DAILY 10/18/23 10/18/23 History Allergies Allergy/AdvReac Type Severity Reaction Status Date / Time codeine Allergy Itching Verified 10/18/23 13:47 Penicillins Allergy Itching Verified 10/18/23 13:47 Physical Exam Vitals: Vital Signs Temp Pulse Resp BP Pulse Ox 10/18/23 16:25 93 18 161/83 100 10/18/23 14:26 89 16 125/82 10 L 10/18/23 12:03 97.5 F L 94 16 121/62 100 Intake and Output 10/18/23 10/18/23 10/18/23 06:59 14:59 22:59 Intake Total 250 Balance 250 Intake: Intake, IV Titration 250 Amount Magnesium Sulfate-D5w Pmx 100 1 gm In Dextrose/Water 1 100ml.bag @ 100 mls/hr IVPB Q1H [facility]RIT Rx#: [id number] Sodium Chloride 0.9% 1, 150 000 ml @ 75 mls/hr IV . [id number] ONE Rx#:[id number] Other: Weight 39.009 kg 39.009 kg PHYSICAL EXAMINATION: Patient is lying in the bed comfortably, no acute distress, awake alert and oriented. Thin built. HEENT: Normocephalic. Neck is supple. Pupils reactive. Nostrils clear. Oral cavity is moist. Neck reveals no JVD, carotid bruits, or thyromegaly. CHEST EXAMINATION: Trachea is central. Symmetrical expansion. Lung pulido clear to auscultation and percussion. CARDIAC: Normal S1, S2 with no gallops. No murmurs ABDOMEN: Soft. Bowel sounds normal. No organomegaly. No abdominal bruits. Extremities: reveal no edema. No clubbing or cyanosis Neurologically awake, alert, oriented x3 with well-coordinated movements. No focal deficits noted Skin: No rash or skin lesions. Psychiatric: Coperative. Nonsuicidal Musculoskeletal: No joint swelling or deformity. Normal range of motion. Results CBC & Chem 7: 10/18/23 12:38 10/18/23 12:38 Labs: Abnormal Lab Results - Last 24 Hours (Table) 10/18/23 10/18/23 10/18/23 Range/Units 12:23 12:38 12:38 RBC 3.56 L (3.80-5.40) m/uL MCV 105.1 H (80.0-100.0) fL Neutrophils # 9.0 H (1.3-7.7) k/uL Lymphocytes # 0.7 L (1.0-4.8) k/uL Carbon Dioxide 16 L (22-30) mmol/L Glucose 161 H (74-99) mg/dL POC Glucose (mg/dL) 221 H (70-110) mg/dL Plasma Lactic Acid Ino (0.7-2.0) mmol/L Magnesium 0.9 L* (1.6-2.3) mg/dL AST 60 H (14-36) U/L Urine Protein (Negative) Urine Glucose (UA) (Negative) Urine Ketones (Negative) Urine Nitrite (Negative) Urine Bacteria (None) /hpf Urine Mucus (None) /hpf 10/18/23 10/18/23 10/18/23 Range/Units 12:38 14:48 14:48 RBC (3.80-5.40) m/uL MCV (80.0-100.0) fL Neutrophils # (1.3-7.7) k/uL Lymphocytes # (1.0-4.8) k/uL Carbon Dioxide (22-30) mmol/L Glucose (74-99) mg/dL POC Glucose (mg/dL) (70-110) mg/dL Plasma Lactic Acid Ino 2.6 H* (0.7-2.0) mmol/L Magnesium 1.0 L (1.6-2.3) mg/dL AST (14-36) U/L Urine Protein Trace H (Negative) Urine Glucose (UA) 2+ H (Negative) Urine Ketones 3+ H (Negative) Urine Nitrite Positive H (Negative) Urine Bacteria Occasional H (None) /hpf Urine Mucus Rare H (None) /hpf Thrombosis Risk Factor Assmnt - DVT/VTE Prophylaxis DVT/VTE Prophylaxis: Pharmacologic Prophylaxis ordered - Choose All That Apply Any of the Below Risk Factors Present?: Yes Each Risk Factor Represents 2 Points: Age 61-74 years Other congenital or acquired thrombophilia - If yes, enter type in comment: No Thrombosis Risk Factor Assessment Total Risk Factor Score: 2 Thrombosis Risk Factor Assessment Level: Low Risk Assessment and Plan Assessment: Altered mental status due to hypoglycemia improved now. Alcohol use disorder Lactic acidosis due to decreased oral intake and tissue hypoperfusion Elevated AST level greater than ALT Abnormal urine sample without symptoms. Follow-up urine culture report. Seizure disorder Hypothyroidism Bipolar disorder Marijuana use Moderate protein calorie malnutrition DVT prophylax with heparin subcu Plan: Patient will be continued on IV hydration with normal saline. Continue thiamine and multivitamins. Encourage oral intake. Replace magnesium. Current home medications and follow-up CBC and BMP tomorrow. Follow-up urine culture report. Time with Patient: Greater than 30
[2023-10-19 00:17] LABS: Glucose,Whole Blood 135 mg/dL (70-110)
[2023-10-19 03:33] VITALS: TEMP 98.6
[2023-10-19 06:30] LABS: Glucose,Whole Blood 101 mg/dL (70-110)
[2023-10-19 08:18] VITALS: BP 132/75; PULSE 71
[2023-10-19 08:31] LABS: Basophils # (A) 0.01 X 10*3/uL (0.00-0.10); Basophils % (A) 0.1 %; Eosinophils # (A) 0 X 10*3/uL (0.04-0.35); Eosinophils % (A) 0 %; HCT 30.7 % (37.2-46.3); HGB 10.6 g/dL (12.0-15.0); Lymphocytes % (A) 22.3 %; MCH 34.4 pg (27.0-32.0); MCHC 34.5 g/dL (32.0-37.0); MCV 99.7 FL (80.0-97.0); Mean Platelet Volume 10.6 FL (9.5-12.2); Monocytes # (A) 0.87 X 10*3/uL (0.20-1.00); Monocytes % (A) 9.7 %; NRBC Per 100 WBC 0 X 10*3/uL (0.00-0.01); Neutrophils # (A) 6.05 X 10*3/uL (1.80-7.70); Neutrophils % (A) 67.7 %; Platelet Count 240 X 10*3/uL (140-440); RBC 3.08 X 10*6/uL (4.10-5.20); RDW 14.6 % (11.5-14.5); WBC 8.95 X 10*3/uL (4.50-10.00)
[2023-10-19 09:07] LABS: Blood Urea Nitrogen 7.8 mg/dL (9.0-27.0); Calcium 7.8 mg/dL (8.7-10.3); Carbon Dioxide 22.9 mmol/L (21.6-31.8); Chloride 105 mmol/L (96-109); Glucose 82 mg/dL (70-110); Magnesium 2.2 mg/dL (1.5-2.4); Potassium 4.1 mmol/L (3.5-5.5); Sodium 139 mmol/L (135-145)
[2023-10-19] MEDS: OXcarbazepine 150 MG TAB PO SCH (10:14)
[2023-10-19] MEDS: FOLIC ACID 1 MG TAB PO SCH (10:14)
== END 2023-10-19 12:26 | disposition home or self-care (01) | DRG 424 ==
LOC: EC 11:59 → 4SSUR 15:21
PROVIDERS: ADMIT Internal Medicine; ATTEND Internal Medicine
DX: E16.2 Hypoglycemia, unspecified (principal); E44.0 Moderate protein-calorie malnutrition; E83.42 Hypomagnesemia; F17.200 Nicotine dependence, unspecified, uncomplicated; E03.9 Hypothyroidism, unspecified; F31.9 Bipolar disorder, unspecified; G40.909 Epilepsy, unspecified, not intractable, without status epilepticus; E87.20 Acidosis, unspecified; M81.0 Age-related osteoporosis without current pathological fracture; Z79.899 Other long term (current) drug therapy; Z87.81 Personal history of (healed) traumatic fracture; Z68.1 Body mass index [BMI] 19.9 or less, adult; Z88.5 Allergy status to narcotic agent; Z88.0 Allergy status to penicillin; Z91.81 History of falling
CPT/HCPCS: 36415; 71046; 80048; 80053; 80320; 81001; 83605; 83735; 85025; 87077; 87086; 87186; 93005; 96374; 99285